=== PATIENT | female | born 1980 | race Caucasian/White ===

== ENCOUNTER 2024-12-14 13:35 | Emergency (ER) | payer OTHER, SELFPAY ==
--- OUTSIDE RECORDS SUMMARY | 2024-12-14 13:40 | XMS_ITS | Referral Summary ---
Author Organization [facility] Address [address] [place] [address] Care Team Providers Care Manager User Interface Name Role Phone Keron Ayon MD Unavailable Masoud Resendiz MD Unavailable [phone] Renetta Parks NP Primary Care Provider Kae Vaughan MD Unavailable [phone] Adriana Vazquez MD Unavailable Encounters Date Type Department Care Team Description 11/30/19 Results Follow-Up [facility] Primary Care at [place] [address] [facility] [address] [place] [address] Kia Gómez NP Surgical pathology 11/25/19 1:33 PM CDT Anesthesia Event [facility] [address] [place], [place] [id number] Jacobo Barajas MD 11/25/19 1:00 PM CDT - 11/25/19 1:30 PM CDT Surgery [facility] Lab [address] [place] [address] Gareth Whittaker MD ESOPHAGOGASTRODUODENOSCOPY BIOPSY 11/25/19 11:52 AM CDT - 11/25/19 4:01 PM CDT Hospital Encounter [facility] Lab [address] [place], [place] [id number] Gareth Whittaker MD Dysphagia, unspecified type Discharge Disposition: Discharge to home or self care 11/19/19 Orders Only [facility] Primary Care at [address] [place] [address] Renetta Parks NP Breast cancer screening by mammogram (Primary Dx) 11/17/19 Results Follow-Up [facility] Primary Care at [address] [place] [address] Renetta Parks NP Diagnostic Mammogram Right [place] 11/16/19 9:37 AM CDT - 11/16/19 11:59 PM CDT Hospital Encounter [facility] Imaging and Radiology [id number] [place] [id number] Abnormal mammogram Discharge Disposition: Discharge to home or self care 11/15/19 10:30 AM CDT Office Visit [facility] [address] [facility] 6th [place] [phone] Margarita Fuentes NP Small fiber neuropathy (Primary Dx) 11/05/19 Results Follow-Up [facility] Primary Care at [address] [place] [address] Renetta Parks NP Screening Mammogram Bilateral [place] 11/03/19 9:02 AM CDT - 11/03/19 11:59 PM CDT Hospital Encounter [facility] Imaging and Radiology [address] [place] [address] Screening mammogram, encount er for Discharge Disposition: Discharge to home or self care 10/04/19 Telephone [facility] Gastroenterology at [facility] [place] [address] [facility] [address] [place] [phone] Gareth Whittaker MD from Last 3 Months Allergies Active Allergy Reactions Criticality Noted Date Comments Adhesive Tape-Silicones Unknown 04/23/2017 DERMABOND Hydrocodone Rash,Nausea And Vomiting Medium 12/25/2016 Oxycodone Rash Reaction: Rash, Sulfa (Sulfonamide Antibiotics) Rash Reaction: Rash, Sulfasalazine Rash Medium 04/23/2017 Medications acetaminophen (TYLENOL) 500 mg tablet Take 1 tablet (500 mg total) by mouth every 6 (six) hours as needed for pain Active acidophilus-pecti n, citrus 100 million cell-10 mg capsule Take 30 billion CFU by mouth daily Active sz-kkr-wkelo-calc ium carb-K1 400 mcg-500 mg calcium-20 mcg tablet Take by mouth Active fluticasone propionate (FLONASE) 50 mcg/actuation nasal spray Administer 2 sprays into affected nostril(s) daily Active lubiprostone (AMITIZA) 8 mcg capsule Take 1 capsule (8 mcg total) by mouth 2 (two) times a day 180 capsule 2 01/28/20 24 Active gabapentin (NEURONTIN) 300 mg capsule TAKE 1 CAPSULE(300 MG) BY MOUTH TWICE DAILY 180 capsule 3 02/26/20 24 Active EPINEPHrine 0.3 mg/0.3 mL auto-injection syringe Inject 0.3 mL (0.3 mg total) into the muscle as instructed once 11/09/19 24 Active BD SafetyGlide Insulin Syringe 0.5 mL 30 gauge x 11/25 syringe 06/14/20 24 Active sertraline (ZOLOFT) 100 mg tabletIndications :Generalized anxiety disorder Take 1 tablet (100 mg total) by mouth daily 90 tablet 3 08/03/19 25 Active omeprazole (PriLOSEC) 20 mg capsuleIndication s:Gastroesophagea l reflux disease, unspecified whether esophagitis present TAKE 1 CAPSULE(20 MG) BY MOUTH DAILY 90 capsule 1 09/29/19 25 Active estradioL (ESTRACE) 1 mg tablet TAKE 1 TABLET(1 MG) BY MOUTH DAILY 30 tablet 11 10/05/19 25 Active levothyroxine (SYNTHROID) 100 mcg tabletIndications :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 TAKE 1 TABLET(100 MCG) BY MOUTH DAILY 90 tablet 3 11/03/19 25 Active oxyBUTYnin XL (DITROPAN-XL) 5 mg 24 hr tablet TAKE 1 TABLET(5 MG) BY MOUTH DAILY 90 tablet 3 11/22/19 25 Active pravastatin (PRAVACHOL) 10 mg tabletIndications :Mixed hyperlipidemia TAKE 1 TABLET(10 MG) BY MOUTH DAILY 90 tablet 3 12/03/19 25 Active oxyBUTYnin XL (DITROPAN-XL) 5 mg 24 hr tablet Take 1 tablet (5 mg total) by mouth daily 90 tablet 3 12/14/19 24 2024 Discontinued pravastatin (PRAVACHOL) 10 mg tabletIndications :Mixed hyperlipidemia TAKE 1 TABLET(10 MG) BY MOUTH DAILY 90 tablet 3 02/03/20 24 2024 Discontinued Active Problems Problem Noted Date Diagnosed Date Dysphagia 09/01/2024 Esophageal dysphagia 08/03/2024 Assessment & Plan (08/31/2024 11:45 AM DIRECTOR REVENUE): Schedule EGD with possible dilation Assessment & Plan (08/03/2024 9:59 AM DIRECTOR REVENUE): -New -Patient will likely need an EGD. She has an appointment scheduled on 08/31/24 to establish care with GI. Advised patient to discuss with GI at that time. -Start on omeprazole 20 mg daily for GERD Well woman exam 09/28/2023 Overview (09/28/2023): Lab: Pap:h/o abnl 2005 s/p colpo Labs with pcp, had HPV Kelly:scheduling this week. Colonoscopy:2022- to repeat in 2027 BMD: 2019. Told normal Assessment & Plan (11/17/2023 10:55 AM CDT): Due in September 2024 Assessment & Plan (09/28/2023 10:51 AM CDT): Complete exam done Menopausal symptoms 09/28/2023 Assessment & Plan (11/17/2023 10:57 AM CDT): She is happy with the estradiol Sleeping Occ hf still, but she is happy Will continue on. Assessment & Plan (09/28/2023 10:10 AM CDT): She was on estrogen patches, but broke out. Will start po estrogen and see if it affects her chol negatively If so will consider ring. Family history of breast cancer in male 09/28/19 Overview (10/15/2023): Mgf- he had three siblings, none with cancer He had two kids, none with cancer She qualifies for genetic testing. Will arrange. RTO 6 weeks for the results. The limitations and implications of the test reviewed. She voices understanding and would like to proceed. 10/15/2023-Kermit negative TC model is 9.6 and my risk is 9.1% Assessment & Plan (11/17/2023 10:56 AM CDT): Results reviewed with how they apply to her and the family. They were encouraged to be tested Kelly this year was negative. To continue with yearly mams and breast awareness. We discussed the meaning of her dense breast. Assessment & Plan (09/28/2023 10:52 AM CDT): She qualifies for genetic testing. Will arrange. RTO 6 weeks for the results. The limitations and implications of the test reviewed. She voices understanding and would like to proceed. Rectal bleeding 07/31/2022 Overview (07/31/2022): Added automatically from request for surgery [id number] Chronic bilateral low back pain without sciatica 07/17/2022 Assessment & Plan (07/17/2022 10:55 AM DIRECTOR REVENUE): -chronic, not at goal -ordered PT -recommend gentle stretching exercises Thyroid nodule 03/28/2021 Assessment & Plan (08/03/2024 7:54 AM DIRECTOR REVENUE): - chronic, stable -Discussed/ordered labs -continue on levothyroxine 100 mcg daily - repeat thyroid ultrasound as needed if noticing any new nodules Assessment & Plan (01/27/2024 7:56 AM CDT): - chronic, stable -continue on levothyroxine 100 mcg daily - repeat thyroid ultrasound as needed if noticing any new nodules Assessment & Plan (07/22/2023 1:13 PM DIRECTOR REVENUE): - chronic, Condition is stable -continue on levothyroxine 100 mcg daily - repeat thyroid ultrasound as needed if noticing any new nodules Assessment & Plan (04/13/2023 9:39 AM CDT): Detected on Ultrasound on 08/30/20 Left thyroid nodule 1.5 X 1.2 cm FNA biopsy showed abnormal cells, but Afirma was low suspicion for malignancy Thyroid Ultrasound on 04/25/21 Stable left lobe nodule Last Ultrasound on 03/24/22 No dominant nodules detected. Plan: We will monitor thyroid gland. Repeat thyroid ultrasound this year Assessment & Plan (07/17/2022 7:17 AM DIRECTOR REVENUE): HPI: Condition is stable A&P: Discussed/ordered labs, encouraged healthy, low carbohydrate lifestyle and at least 150min/week of exercise, continue on levothyroxine 100 mcg daily Continue seeing Dr. Grigsby endocrinology Assessment & Plan (04/16/2022 6:34 PM CDT): HPI: Condition is stable A&P: Discussed/ordered labs, encouraged healthy, low carbohydrate lifestyle and at least 150min/week of exercise, continue seeing Dr. Grigsby endo Continue on levothyroxine 100mcg daily Please take levothyroxine on an empty stomach. This means 1 hour before eating or 2 hours after eating. Food in the stomach will interfere with absorption of the levothyroxine. Calcium, antacids and iron supplements will also interfere with the absorption of levothyroxine. Please take these at a different time of the day. Assessment & Plan (04/07/2022 3:21 PM CDT): Detected on Ultrasound on 08/30/20 Left thyroid nodule 1.5 X 1.2 cm FNA biopsy showed abnormal cells, but Afirma was low suspicion for malignancy Thyroid Ultrasound on 04/25/21 Stable left lobe nodule Last Ultrasound on 03/24/22 No dominant nodules detected. Plan: We will monitor thyroid gland. Assessment & Plan (10/16/2021 6:54 AM CDT): HPI: Condition is stable A&P: US 08/30/2020 noted a left thyroid nodule. A biopsy showed abnormal cells, but Afirma was low suspicion for malignancy. Repeat thyroid US done on 04/25/2021 showed stable left lobe nodule, possible right nodule. When repeated before FNA biopsy, radiologist did not see a nodule. Continue seeing Dr. Seb lundberg who is monitoring thyroid and repeating ultrasound. Assessment & Plan (10/03/2021 3:22 PM CDT): Detected on Ultrasound on 08/30/20 Left thyroid nodule 1.5 X 1.2 cm FNA biopsy showed abnormal cells, but Afirma was low suspicion for malignancy Thyroid Ultrasound on 04/25/21 Stable left lobe nodule Possible right lobe nodule - but when repeated before FNA biopsy- radiologist did not see an actual nodule Plan: We will monitor thyroid and will repeat thyroid ultrasound before next visit. Assessment & Plan (03/28/2021 4:31 PM CDT): Detected on Ultrasound on 08/30/20 Left thyroid nodule 1.5 X 1.2 cm FNA biopsy showed abnormal cells, but Afirma was low suspicion for malignancy Plan: The diagnosis reviewed with patient We will monitor thyroid and will repeat thyroid ultrasound this month Small fiber neuropathy 03/22/2021 Assessment & Plan (08/03/2024 7:54 AM DIRECTOR REVENUE): - chronic, stable -Discussed/ordered labs -continue on gabapentin 300 mg twice daily -Continue seeing Dr. Marroquin Neurology Assessment & Plan (01/27/2024 7:56 AM CDT): - chronic, stable -Discussed/ordered labs -continue on gabapentin 300 mg twice daily -Continue seeing Dr. Marroquin Neurology Assessment & Plan (07/22/2023 1:13 PM DIRECTOR REVENUE): - chronic, Condition is stable -Discussed/ordered labs -continue on gabapentin 300 mg twice daily -Continue seeing Dr. Marroquin Neurology Assessment & Plan (07/17/2022 7:17 AM DIRECTOR REVENUE): HPI: Condition is stable A&P: Discussed/ordered labs, encouraged healthy, low carbohydrate lifestyle and at least 150min/week of exercise, continue on gabapentin 300 mg twice daily Continue seeing Dr. Marroquin Neurology Assessment & Plan (04/16/2022 6:35 PM CDT): HPI: Condition is stable A&P: Discussed/ordered labs, encouraged healthy, low carbohydrate lifestyle and at least 150min/week of exercise, continue on gabapentin 300mg twice daily, continue seeing Dr. Marroquin neuro Assessment & Plan (10/16/2021 6:55 AM CDT): HPI: Condition is stable A&P: Discussed/ordered labs, encouraged healthy, low carbohydrate lifestyle and at least 150min/week of exercise, continue on gabapentin 300mg twice daily, continue seeing Dr. Marroquin neuro Assessment & Plan (03/22/2021 1:52 PM CDT): HPI: Condition is stable A&P: Discussed/ordered labs, encouraged healthy, low carbohydrate lifestyle and at least 150min/week of exercise, continue on gabapentin 300mg once daily, seeing Dr. Marroquin neuro LALI (obstructive sleep apnea) 08/23/2020 Assessment & Plan (08/03/2024 7:54 AM DIRECTOR REVENUE): -chronic, stable Pt states using cpap for 7 hours/night 7 nights/wk Pt states less daytime somnolence, feels better when using it. Would recommend the continued use of cpap Continue seeing Dr. Vazquez sleep Medicine Assessment & Plan (01/27/2024 7:56 AM CDT): -chronic, stable Pt states using cpap for 7 hours/night 7 nights/wk Pt states less daytime somnolence, feels better when using it. Would recommend the continued use of cpap Continue seeing Dr. Vazquez sleep Medicine Assessment & Plan (07/22/2023 1:12 PM DIRECTOR REVENUE): -chronic, stable Pt states using cpap for 7 hours/night 7 nights/wk Pt states less daytime somnolence, feels better when using it. Would recommend the continued use of cpap Continue seeing Dr. Vazquez sleep Medicine Assessment & Plan (04/16/2022 6:37 PM CDT): Pt states using cpap for 6-8 hours/night most nights/wk Pt states less daytime somnolence, feels better when using it. Would recommend the continued use of cpap Continue f/u with Dr. Vazquez sleep med Assessment & Plan (10/16/2021 6:56 AM CDT): Pt states using cpap for 6-8 hours/night most nights/wk Pt states less daytime somnolence, feels better when using it. Would recommend the continued use of cpap Continue f/u with Dr. Vazquez sleep med Assessment & Plan (03/22/2021 1:46 PM CDT): Pt states using cpap for 6-8 hours/night most nights/wk Pt states less daytime somnolence, feels better when using it. Would recommend the continued use of cpap Continue f/u with Dr. Vazquez sleep med Assessment & Plan (09/14/2020 1:32 PM DIRECTOR REVENUE): Just got fitted today for her cpap and will be using it today. Her fatigue is getting worse and is hoping this will help. Dr. Vazquez (sleep med) Overactive bladder 04/06/2020 Assessment & Plan (04/17/2022 8:26 AM CDT): HPI: Condition is stable A&P: Discussed/ordered labs, encouraged healthy, low carbohydrate lifestyle and at least 150min/week of exercise, no longer seeing Dr. Nieto urology, now seeing Dr. Coley urology continue doing Kegel exercises and low back exercises, vesicare 5mg daily Pt did pelvic floor physical therapy, getting ready to start that again Assessment & Plan (10/16/2021 8:08 AM CDT): HPI: Condition is stable A&P: Discussed/ordered labs, encouraged healthy, low carbohydrate lifestyle and at least 150min/week of exercise, continue seeing Dr. Nieto urology, continue doing Kegel exercises and low back exercises, oxybutynin 5mg daily, still having breakthrough. Pt is doing pelvic floor PT. Assessment & Plan (03/22/2021 1:49 PM CDT): HPI: Condition is stable A&P: Discussed/ordered labs, encouraged healthy, low carbohydrate lifestyle and at least 150min/week of exercise, continue seeing Dr. Nieto, doing Kegel exercises and low back exercises, oxybutynin 5 mg daily, still having breakthrough. Doing pelvic floor PT at home also Assessment & Plan (09/14/2020 1:37 PM DIRECTOR REVENUE): HPI: Condition is stable A&P: Discussed/ordered labs, encouraged healthy, low carbohydrate lifestyle and at least 150min/week of exercise, continue seeing Dr. Nieto. Saw him yesterday. They did a scope on her, patient is doing Kegel exercises and low back exercises in taking oxybutynin 5 mg daily. She is going to start pelvic floor exercises. She still has some days when she sneezes and jumping that she has leakage or when she is busy and does not get to go to the bathroom as frequently she may have a little leakage. Assessment & Plan (04/06/2020 8:25 AM CDT): HPI: Condition is stable A&P: Discussed/ordered labs, encouraged healthy, low carbohydrate lifestyle and at least 150min/week of exercise, continue on She is seeing urology-Dr. Pond Did scope, has pt doing kegel exercises, low back exercises and taking oxybutynin 5mg daily. She still has some days when she sneezing that she has leakage or if she is busy and doesn't go to the bathroom as frequently she may have some leakage Raynaud's disease without gangrene 04/06/2020 Assessment & Plan (08/03/2024 7:55 AM DIRECTOR REVENUE): -chronic, stable -continue to wear gloves and warm socks and winter, use thermally cups to avoid rapid temperature changes to hands Assessment & Plan (07/22/2023 1:12 PM DIRECTOR REVENUE): -chronic, Condition is stable -continue to wear gloves and warm socks and winter, use thermally cups to avoid rapid temperature changes to hands Assessment & Plan (07/17/2022 7:18 AM DIRECTOR REVENUE): HPI: Condition is stable A&P: continue to wear gloves and warm socks and winter, use thermally cups to avoid rapid temperature changes to hands Assessment & Plan (04/16/2022 6:37 PM CDT): continue to wear gloves and warm socks in the winter, recommend using thermal lined cups to avoid rapid temperature changes to hands Assessment & Plan (10/16/2021 6:57 AM CDT): HPI: Condition is stable A&P: Discussed/ordered labs, encouraged healthy, low carbohydrate lifestyle and at least 150min/week of exercise, continue to wear gloves and warm socks in the winter, recommend using thermal lined cups to avoid rapid temperature changes to hands Assessment & Plan (03/22/2021 1:27 PM CDT): HPI: Condition is stable A&P: Discussed/ordered labs, encouraged healthy, low carbohydrate lifestyle and at least 150min/week of exercise, continue to wear gloves and warm socks in the winter, recommend using thermal lined cups to avoid rapid temperature changes to hands Assessment & Plan (09/14/2020 1:34 PM DIRECTOR REVENUE): HPI: Condition is stable , she has a lot of callouses and dry skin on her feet. Sometimes her feet peel until they are bleeding. A&P: Discussed/ordered labs, encouraged healthy, low carbohydrate lifestyle and at least 150min/week of exercise, continue on make sure your wearing warm socks and gloves during the winter, should be using a thermal lying cup to be drinking out of so you do not have large temperature changes on her hands Referral to podiatry made Assessment & Plan (04/06/2020 9:45 AM CDT): HPI: Condition is stable A&P: Discussed/ordered labs, encouraged healthy, low carbohydrate lifestyle and at least 150min/week of exercise, discussed with patient to please make sure she is wearing warm socks and gloves during the winter, she should be using a thermal lined cup to be drinking out of so she does not have large temperature changes on her hands Class 2 severe obesity due t o excess calories with serious comorbidity and body mass index (BMI) of 37.0 to 37.9 in adult 04/06/2020 Assessment & Plan (08/03/2024 7:55 AM DIRECTOR REVENUE): -chronic, not at/near goal goal BMI <30 Healthy, high-protein, lower carbohydrate, lower fat lifestyle and exercise for 150min/week recommended Recommend tracking everything you put in your mouth on an debo like [employer] Hand Measurements: A fist or cupped hand = 1 cup 1 cup = 1 -2 servings of fruit juice 1 oz. of cold cereal 2 oz. of cooked cereal, rice or pasta 8 oz. of milk or yogurt A thumb = 1 oz. of cheese Consuming low-fat cheese helps you meet the required servings from the milk, yogurt and cheese group. 1 oz. of low-fat cheese counts as 8 oz. of milk or yogurt. Handful = 1-2 oz. of snack food Thumb tip = 1 teaspoon Keep high-fat foods, such as peanut butter and mayonnaise, at a minimum. One teaspoon is equal to the end of your thumb, from the knuckle up. Three teaspoons equals 1 tablespoon. Palm = 3 oz. of meat Choose lean poultry, fish, shellfish and beef. One palm size portion equals 3 oz. for an adult and 1 -2 oz. for a child under 5. 1 tennis ball or a fist= 1/2 cup of fruit and vegetables Healthy diets include a variety of colorful fruits and vegetables every day. The secret to serving size is in your hand. Snacking can add up. Because hand sizes vary, compare your fist size to an actual measuring cup. Assessment & Plan (01/27/2024 7:57 AM CDT): -chronic, not at/near goal goal BMI <30 Healthy, high-protein, lower carbohydrate, lower fat lifestyle and exercise for 150min/week recommended Recommend tracking everything you put in your mouth on an debo like [employer] Hand Measurements: A fist or cupped hand = 1 cup 1 cup = 1 -2 servings of fruit juice 1 oz. of cold cereal 2 oz. of cooked cereal, rice or pasta 8 oz. of milk or yogurt A thumb = 1 oz. of cheese Consuming low-fat cheese helps you meet the required servings from the milk, yogurt and cheese group. 1 oz. of low-fat cheese counts as 8 oz. of milk or yogurt. Handful = 1-2 oz. of snack food Thumb tip = 1 teaspoon Keep high-fat foods, such as peanut butter and mayonnaise, at a minimum. One teaspoon is equal to the end of your thumb, from the knuckle up. Three teaspoons equals 1 tablespoon. Palm = 3 oz. of meat Choose lean poultry, fish, shellfish and beef. One palm size portion equals 3 oz. for an adult and 1 -2 oz. for a child under 5. 1 tennis ball or a fist= 1/2 cup of fruit and vegetables Healthy diets include a variety of colorful fruits and vegetables every day. The secret to serving size is in your hand. Snacking can add up. Because hand sizes vary, compare your fist size to an actual measuring cup. Assessment & Plan (07/22/2023 1:10 PM DIRECTOR REVENUE): HPI: Condition is not at/near goal goal BMI <30 A&P: Healthy, high-protein, lower carbohydrate, lower fat lifestyle and exercise for 150min/week recommended Recommend tracking everything you put in your mouth on an debo like [employer] Hand Measurements: A fist or cupped hand = 1 cup 1 cup = 1 -2 servings of fruit juice 1 oz. of cold cereal 2 oz. of cooked cereal, rice or pasta 8 oz. of milk or yogurt A thumb = 1 oz. of cheese Consuming low-fat cheese helps you meet the required servings from the milk, yogurt and cheese group. 1 oz. of low-fat cheese counts as 8 oz. of milk or yogurt. Handful = 1-2 oz. of snack food Thumb tip = 1 teaspoon Keep high-fat foods, such as peanut butter and mayonnaise, at a minimum. One teaspoon is equal to the end of your thumb, from the knuckle up. Three teaspoons equals 1 tablespoon. Palm = 3 oz. of meat Choose lean poultry, fish, shellfish and beef. One palm size portion equals 3 oz. for an adult and 1 -2 oz. for a child under 5. 1 tennis ball or a fist= 1/2 cup of fruit and vegetables Healthy diets include a variety of colorful fruits and vegetables every day. The secret to serving size is in your hand. Snacking can add up. Because hand sizes vary, compare your fist size to an actual measuring cup. Assessment & Plan (02/26/2023 7:01 AM CDT): HPI: Condition is not at/near goal goal BMI <30 A&P: Healthy, high-protein, lower carbohydrate, lower fat lifestyle and exercise for 150min/week recommended Recommend tracking everything you put in your mouth on an debo like [employer] Hand Measurements: A fist or cupped hand = 1 cup 1 cup = 1 -2 servings of fruit juice 1 oz. of cold cereal 2 oz. of cooked cereal, rice or pasta 8 oz. of milk or yogurt A thumb = 1 oz. of cheese Consuming low-fat cheese helps you meet the required servings from the milk, yogurt and cheese group. 1 oz. of low-fat cheese counts as 8 oz. of milk or yogurt. Handful = 1-2 oz. of snack food Thumb tip = 1 teaspoon Keep high-fat foods, such as peanut butter and mayonnaise, at a minimum. One teaspoon is equal to the end of your thumb, from the knuckle up. Three teaspoons equals 1 tablespoon. Palm = 3 oz. of meat Choose lean poultry, fish, shellfish and beef. One palm size portion equals 3 oz. for an adult and 1 -2 oz. for a child under 5. 1 tennis ball or a fist= 1/2 cup of fruit and vegetables Healthy diets include a variety of colorful fruits and vegetables every day. The secret to serving size is in your hand. Snacking can add up. Because hand sizes vary, compare your fist size to an actual measuring cup. Assessment & Plan (01/15/2023 7:17 AM CDT): HPI: Condition is not at/near goal goal BMI <30 A&P: Healthy, high-protein, lower carbohydrate, lower fat lifestyle and exercise for 150min/week recommended Recommend tracking everything you put in your mouth on an debo like myfitnesspal Hand Measurements: A fist or cupped hand = 1 cup 1 cup = 1 -2 servings of fruit juice 1 oz. of cold cereal 2 oz. of cooked cereal, rice or pasta 8 oz. of milk or yogurt A thumb = 1 oz. of cheese Consuming low-fat cheese helps you meet the required servings from the milk, yogurt and cheese group. 1 oz. of low-fat cheese counts as 8 oz. of milk or yogurt. Handful = 1-2 oz. of snack food Thumb tip = 1 teaspoon Keep high-fat foods, such as peanut butter and mayonnaise, at a minimum. One teaspoon is equal to the end of your thumb, from the knuckle up. Three teaspoons equals 1 tablespoon. Palm = 3 oz. of meat Choose lean poultry, fish, shellfish and beef. One palm size portion equals 3 oz. for an adult and 1 -2 oz. for a child under 5. 1 tennis ball or a fist= 1/2 cup of fruit and vegetables Healthy diets include a variety of colorful fruits and vegetables every day. The secret to serving size is in your hand. Snacking can add up. Because hand sizes vary, compare your fist size to an actual measuring cup. Assessment & Plan (11/13/2022 7:05 AM CDT): HPI: Condition is not at/near goal goal BMI <30 A&P: Healthy, high-protein, lower carbohydrate, lower fat lifestyle and exercise for 150min/week recommended Recommend tracking everything you put in your mouth on an debo like CellSpin[employer] Hand Measurements: A fist or cupped hand = 1 cup 1 cup = 1 -2 servings of fruit juice 1 oz. of cold cereal 2 oz. of cooked cereal, rice or pasta 8 oz. of milk or yogurt A thumb = 1 oz. of cheese Consuming low-fat cheese helps you meet the required servings from the milk, yogurt and cheese group. 1 oz. of low-fat cheese counts as 8 oz. of milk or yogurt. Handful = 1-2 oz. of snack food Thumb tip = 1 teaspoon Keep high-fat foods, such as peanut butter and mayonnaise, at a minimum. One teaspoon is equal to the end of your thumb, from the knuckle up. Three teaspoons equals 1 tablespoon. Palm = 3 oz. of meat Choose lean poultry, fish, shellfish and beef. One palm size portion equals 3 oz. for an adult and 1 -2 oz. for a child under 5. 1 tennis ball or a fist= 1/2 cup of fruit and vegetables Healthy diets include a variety of colorful fruits and vegetables every day. The secret to serving size is in your hand. Snacking can add up. Because hand sizes vary, compare your fist size to an actual measuring cup. Assessment & Plan (09/18/2022 7:07 AM DIRECTOR REVENUE): HPI: Condition is not at/near goal goal BMI <30 A&P: Healthy, high-protein, lower carbohydrate, lower fat lifestyle and exercise for 150min/week recommended Recommend tracking everything you put in your mouth on an debo like [employer] Hand Measurements: A fist or cupped hand = 1 cup 1 cup = 1 -2 servings of fruit juice 1 oz. of cold cereal 2 oz. of cooked cereal, rice or pasta 8 oz. of milk or yogurt A thumb = 1 oz. of cheese Consuming low-fat cheese helps you meet the required servings from the milk, yogurt and cheese group. 1 oz. of low-fat cheese counts as 8 oz. of milk or yogurt. Handful = 1-2 oz. of snack food Thumb tip = 1 teaspoon Keep high-fat foods, such as peanut butter and mayonnaise, at a minimum. One teaspoon is equal to the end of your thumb, from the knuckle up. Three teaspoons equals 1 tablespoon. Palm = 3 oz. of meat Choose lean poultry, fish, shellfish and beef. One palm size portion equals 3 oz. for an adult and 1 -2 oz. for a child under 5. 1 tennis ball or a fist= 1/2 cup of fruit and vegetables Healthy diets include a variety of colorful fruits and vegetables every day. The secret to serving size is in your hand. Snacking can add up. Because hand sizes vary, compare your fist size to an actual measuring cup. Assessment & Plan (07/17/2022 7:20 AM DIRECTOR REVENUE): HPI: Condition is not at/near goal goal BMI <30 A&P: Healthy, high-protein, lower carbohydrate, lower fat lifestyle and exercise for 150min/week recommended Recommend tracking everything you put in your mouth on an debo like [employer] Hand Measurements: A fist or cupped hand = 1 cup 1 cup = 1 -2 servings of fruit juice 1 oz. of cold cereal 2 oz. of cooked cereal, rice or pasta 8 oz. of milk or yogurt A thumb = 1 oz. of cheese Consuming low-fat cheese helps you meet the required servings from the milk, yogurt and cheese group. 1 oz. of low-fat cheese counts as 8 oz. of milk or yogurt. Handful = 1-2 oz. of snack food Thumb tip = 1 teaspoon Keep high-fat foods, such as peanut butter and mayonnaise, at a minimum. One teaspoon is equal to the end of your thumb, from the knuckle up. Three teaspoons equals 1 tablespoon. Palm = 3 oz. of meat Choose lean poultry, fish, shellfish and beef. One palm size portion equals 3 oz. for an adult and 1 -2 oz. for a child under 5. 1 tennis ball or a fist= 1/2 cup of fruit and vegetables Healthy diets include a variety of colorful fruits and vegetables every day. The secret to serving size is in your hand. Snacking can add up. Because hand sizes vary, compare your fist size to an actual measuring cup. Assessment & Plan (04/16/2022 6:37 PM CDT): HPI: Condition is not at/near goal goal BMI <30 A&P: Healthy, high-protein, lower carbohydrate, lower fat lifestyle and exercise for 150min/week recommended Recommend tracking everything you put in your mouth on an debo like [employer] Cloud Lower carb substitutions: [employer] carries a zero net carb bread If you are looking for whole potatoes, like to use in soup or new potato shape/flavor, radishes are a great replacement If you are looking for mashed potatoes, riced cauliflower in the frozen bag section are a great replacement For pasta, try using zucchini noodles, lay them out on a cookie sheet and pat dry with a tea towel to try to remove as much moisture as possible. Heat your pasta sauce on the stove and put the noodles in for 30-45 seconds. If you leave them in much longer they will become mushy Nocatee and/or coconut flour instead of regular flour For pizza dough, try fathead pizza dough recipe online. To get a crispy crust, bake on one side for 8-12 min, then flip over and bake on the other side for 8-12 min, then put toppings on and bake until the cheese on top of pizza melts chaffles recipe online For ice cream, try the brand Enlightened To replace coffee creamer and make it low carb, use heavy creamer with sugar free Torani sweetener For chips, try Whisps or pork rinds For yogurt, try Two Good martiniquais yogurt Use Pinterest for recipe ideas. Type in low carb... Hand Measurements: A fist or cupped hand = 1 cup 1 cup = 1 -2 servings of fruit juice 1 oz. of cold cereal 2 oz. of cooked cereal, rice or pasta 8 oz. of milk or yogurt A thumb = 1 oz. of cheese Consuming low-fat cheese helps you meet the required servings from the milk, yogurt and cheese group. 1 oz. of low-fat cheese counts as 8 oz. of milk or yogurt. Handful = 1-2 oz. of snack food Thumb tip = 1 teaspoon Keep high-fat foods, such as peanut butter and mayonnaise, at a minimum. One teaspoon is equal to the end of your thumb, from the knuckle up. Three teaspoons equals 1 tablespoon. Palm = 3 oz. of meat Choose lean poultry, fish, shellfish and beef. One palm size portion equals 3 oz. for an adult and 1 -2 oz. for a child under 5. 1 tennis ball or a fist= 1/2 cup of fruit and vegetables Healthy diets include a variety of colorful fruits and vegetables every day. The secret to serving size is in your hand. Snacking can add up. Remember, 1 handful equals 1 oz. of nuts and small candies. For chips and pretzels, 2 handfuls equals 1 oz. Because hand sizes vary, compare your fist size to an actual measuring cup. Assessment & Plan (10/16/2021 8:07 AM CDT): HPI: Condition is improving, but not at goal goal BMI <30 A&P: Healthy, high-protein, lower carbohydrate, lower fat lifestyle and exercise for 150min/week recommended Substitutions: Recommend tracking everything you put in your mouth on an debo like [employer] Cloud or [employer] carries a zero net carb bread If you are looking for whole potatoes, like to use in soup or new potato shape/flavor, radishes are a great replacement If you are looking for mashed potatoes, riced cauliflower in the frozen bag section are a great replacement For pasta, try using zucchini noodles, lay them out on a cookie sheet and pat dry with a tea towel to try to remove as much moisture as possible. Heat your pasta sauce on the stove and put the noodles in for 30-45 seconds. If you leave them in much longer they will become mushy Nocatee and/or coconut flour instead of regular flour For pizza dough, try fathead pizza dough recipe online. To get a crispy crust, bake on one side for 8-12 min, then flip over and bake on the other side for 8-12 min, then put toppings on and bake until the cheese on top of pizza melts chaffles recipe online For ice cream, try the brand Enlightened To replace coffee creamer and make it low carb, use heavy creamer with sugar free Torani sweetener For chips, try Whisps or pork rinds For yogurt, try Two Good martiniquais yogurt Use [employer] for recipe ideas. Type in low carb... Assessment & Plan (03/22/2021 1:47 PM CDT): HPI: Condition is not at/near goal goal BMI <30 A&P: Healthy, high-protein, lower carbohydrate, lower fat lifestyle and exercise for 150min/week recommended Pt has interest in seeing Carlita Russell NP for wt loss evaluation Substitutions: Recommend tracking everything you put in your mouth on an debo like [employer] Cloud or [employer] carries a zero net carb bread If you are looking for whole potatoes, like to use in soup or new potato shape/flavor, radishes are a great replacement If you are looking for mashed potatoes, riced cauliflower in the frozen bag section are a great replacement For pasta, try using zucchini noodles, lay them out on a cookie sheet and pat dry with a tea towel to try to remove as much moisture as possible. Heat your pasta sauce on the stove and put the noodles in for 30-45 seconds. If you leave them in much longer they will become mushy Nocatee and/or coconut flour instead of regular flour For pizza dough, try fathead pizza dough recipe online. To get a crispy crust, bake on one side for 8-12 min, then flip over and bake on the other side for 8-12 min, then put toppings on and bake until the cheese on top of pizza melts chaffles recipe online For ice cream, try the brand Enlightened To replace coffee creamer and make it low carb, use heavy creamer with sugar free Torani sweetener For chips, try Whisps or pork rinds For yogurt, try Two Good martiniquais yogurt Use Pinterest for recipe ideas. Type in low carb... Assessment & Plan (09/14/2020 12:58 PM DIRECTOR REVENUE): HPI: Condition is stable A&P: Healthy, low carbohydrate lifestyle and exercise for 150min/week recommended Substitutions: Recommend tracking everything you put in your mouth on an debo like [employer] Cloud [employer] carries a zero net carb bread If you are looking for whole potatoes, like to use in soup or new potato shape/flavor, radishes are a great replacement If you are looking for mashed potatoes, riced cauliflower in the frozen bag section are a great replacement For pasta, try using zucchini noodles, lay them out on a cookie sheet and pat dry with a tea towel to try to remove as much moisture as possible. Heat your pasta sauce on the stove and put the noodles in for 30-45 seconds. If you leave them in much longer they will become mushy Nocatee and/or coconut flour instead of regular flour For pizza dough, try fathead pizza dough recipe online. To get a crispy crust, bake on one side for 8-12 min, then flip over and bake on the other side for 8-12 min, then put toppings on and bake until the cheese on top of pizza melts chaffles recipe online For ice cream, try the brand Enlightened To replace coffee creamer and make it low carb, use heavy creamer with sugar free Torani sweetener For chips, try Whisps or pork rinds For yogurt, try Two Good martiniquais yogurt Use Pinterest for recipe ideas. Type in low carb... Assessment & Plan (04/06/2020 9:52 AM CDT): HPI: Condition is worsening A&P: Healthy, low carbohydrate lifestyle and exercise for 150min/week recommended Substitutions: Aldi carries a zero net carb bread If you are looking for whole potatoes, like to use in soup or new potato shape/flavor, radishes are a great replacement If you are looking for mashed potatoes, riced cauliflower in the frozen bag section are a great replacement For pasta, try using zucchini noodles, lay them out on a cookie sheet and pat dry with a tea towel to try to remove as much moisture as possible. Heat your pasta sauce on the stove and put the noodles in for 30-45 seconds. If you leave them in much longer they will become mushy Nocatee and/or coconut flour instead of regular flour For pizza dough, try fathead pizza dough recipe online. To get a crispy crust, bake on one side for 8-12 min, then flip over and bake on the other side for 8-12 min, then put toppings on and bake until the cheese on top of pizza melts chaffles recipe online For ice cream, try the brand Enlightened Use Pinterest for recipe ideas. Type in low carb... Irritable bowel syndrome wit h both constipation and diarrhea 09/22/2019 Assessment & Plan (08/31/2024 11:45 AM DIRECTOR REVENUE): Continue Amitiza Assessment & Plan (08/03/2024 9:56 AM DIRECTOR REVENUE): -chronic, stable -Discussed/ordered labs -Keep scheduled appointment to establish care with GI on 08/31/24 Assessment & Plan (01/30/2024 11:27 AM CDT): -chronic, stable -Discussed/ordered labs -patient will need a referral to GI since Dr. Ayon is leaving [facility] soon. -referral placed to GI Assessment & Plan (04/16/2022 6:42 PM CDT): HPI: Condition is stable A&P: Discussed/ordered labs, encouraged healthy, low carbohydrate lifestyle and at least 150min/week of exercise, continue on amitriptyline 50mg nightly, continue to see Dr. Ayon GI Continue to take daily probiotics Assessment & Plan (10/16/2021 8:11 AM CDT): HPI: Condition is stable starting to get better. Pt is getting ready to see a GI specialist that specializes with endometriosis also. A&P: Discussed/ordered labs, encouraged healthy, low carbohydrate lifestyle and at least 150min/week of exercise, continue on amitriptyline 50 mg nightly, continue seeing Dr. Ayon (GI). Please start taking probiotic 20-50billion CFU daily buttermaker continuous churn. This will help maintain the good bacteria that is in your gut. Assessment & Plan (03/22/2021 1:29 PM CDT): HPI: Condition is stable A&P: Discussed/ordered labs, encouraged healthy, low carbohydrate lifestyle and at least 150min/week of exercise, continue on amitriptyline 25 mg at bedtime, no longer taking bentyl. Continue seeing Dr. Ayon (GI) Please start taking probiotic 20-50billion CFU daily buttermaker continuous churn. This will help maintain the good bacteria that is in your gut. Please note that the refrigerated probiotics are going to be superior to the shelf stable ones. However, once the refrigerated ones are no longer cold, they are old and should be considered not effective. For this reason, I recommend purchasing a bottle of shelf stable ones also if you are going to be out of town or do not have a stable refrigeration system in place for the probiotic. Assessment & Plan (09/14/2020 1:40 PM DIRECTOR REVENUE): HPI: Condition is stable A&P: Discussed/ordered labs, encouraged healthy, low carbohydrate lifestyle and at least 150min/week of exercise, continue on Bentyl 20 mg 4 times daily in amitriptyline 25 mg at bedtime. Continue seeing Dr. Gabo WATERS Please start taking probiotic 20-50billion CFU daily buttermaker continuous churn. This will help maintain the good bacteria that is in your gut. Please note that the refrigerated probiotics are going to be superior to the shelf stable ones. However, once the refrigerated ones are no longer cold, they are old and should be considered not effective. For this reason, I recommend purchasing a bottle of shelf stable ones also if you are going to be out of town or do not have a stable refrigeration system in place for the probiotic. Assessment & Plan (04/06/2020 7:42 AM CDT): HPI: Condition is stable A&P: Discussed/ordered labs, encouraged healthy, low carbohydrate lifestyle and at least 150min/week of exercise, continue on Bentyl 20 mg 4 times daily and amitriptyline 25 mg at bedtime Patient sees Dr. Gabo WATERS Mixed hyperlipidemia 04/28/2019 Assessment & Plan (08/03/2024 7:54 AM DIRECTOR REVENUE): -chronic, stable -Discussed/ordered labs -continue on pravastatin 10 mg nightly Assessment & Plan (01/27/2024 7:56 AM CDT): -chronic, stable -Discussed/ordered labs -continue on pravastatin 10 mg nightly Assessment & Plan (07/22/2023 1:11 PM DIRECTOR REVENUE): -chronic, unknown, no data to review at this time to make an evaluation -Discussed/ordered labs -continue on pravastatin 10 mg nightly Assessment & Plan (04/16/2022 6:44 PM CDT): HPI: Condition is stable A&P: Discussed/ordered labs, encouraged healthy, low carbohydrate lifestyle and at least 150min/week of exercise, continue on pravastatin 10mg daily, push water intake Assessment & Plan (10/16/2021 7:02 AM CDT): HPI: Condition is stable A&P: Discussed/ordered labs, encouraged healthy, low carbohydrate lifestyle and at least 150min/week of exercise, continue on pravastatin 10mg daily, push water intake Assessment & Plan (03/22/2021 1:30 PM CDT): HPI: Condition is stable A&P: Discussed/ordered labs, encouraged healthy, low carbohydrate lifestyle and at least 150min/week of exercise, continue on pravastatin 10 mg daily, push water intake Assessment & Plan (09/14/2020 1:41 PM DIRECTOR REVENUE): HPI: Condition is stable A&P: Discussed/ordered labs, encouraged healthy, low carbohydrate lifestyle and at least 150min/week of exercise, continue on pravastatin 10 mg daily, push water Assessment & Plan (04/06/2020 7:39 AM CDT): HPI: Condition is stable A&P: Discussed/ordered labs, encouraged healthy, low carbohydrate lifestyle and at least 150min/week of exercise, continue on pravastatin 10 mg daily Assessment & Plan (04/28/2019 11:34 AM CDT): Discussed labs, Condition is new, encouraged healthy, low carbohydrate diet and at least 150min/week of exercise, start on pravastatin 10mg daily. It is best to take it at bedtime if possible. Drink lots of water to prevent muscle pains Arthralgia 04/28/2019 Assessment & Plan (04/16/2022 6:44 PM CDT): HPI: Condition is stable A&P: Discussed/ordered labs, encouraged healthy, low carbohydrate lifestyle and at least 150min/week of exercise, patient may trial on Vital Proteins Collagen Peptides two capfuls a day to help with joints May continue to use tylenol as needed Assessment & Plan (10/16/2021 7:01 AM CDT): HPI: Condition is stable A&P: Discussed/ordered labs, encouraged healthy, low carbohydrate lifestyle and at least 150min/week of exercise, patient may trial on Vital Proteins Collagen Peptides two capfuls a day to help with joints Assessment & Plan (03/22/2021 1:30 PM CDT): HPI: Condition is stable A&P: Discussed/ordered labs, encouraged healthy, low carbohydrate lifestyle and at least 150min/week of exercise, patient may trial on Vital Proteins Collagen Peptides two capfuls a day to help with joints Assessment & Plan (09/14/2020 1:41 PM DIRECTOR REVENUE): HPI: Condition is stable A&P: Discussed/ordered labs, encouraged healthy, low carbohydrate lifestyle and at least 150min/week of exercise, endocrinology recommended patient see rheumatology and now she is scheduled to see Dr. Michaud (gauge controller) patient may trial on Vital Proteins Collagen Peptides one capful a day to help with joints Assessment & Plan (07/27/2020 4:13 PM DIRECTOR REVENUE): Patient with chronic symptoms and has seen Client Account Assistant and did not get treatment Her symptoms are not caused by thyroid or Lucio's - explained to patient that her thyroid disease is not the cause of joint problems. - I suggested getting rheumatological second opinion Assessment & Plan (04/06/2020 9:47 AM CDT): HPI: Condition is stable A&P: Discussed/ordered labs, encouraged healthy, low carbohydrate lifestyle and at least 150min/week of exercise, at last office visit we gave referral to rheumatology She is seeing Dr. Kitchen Assessment & Plan (04/28/2019 11:19 AM CDT): Condition is worsening She is having bilateral knee pain, pain in back, hip pain/goes numb. We will do rheumatoid panel work up and refer to rheumatology Vitamin D deficiency 03/25/2019 Assessment & Plan (08/03/2024 9:56 AM DIRECTOR REVENUE): -chronic, stable -Discussed/ordered labs -Patient is not currently taking a supplement for this Assessment & Plan (01/27/2024 7:56 AM CDT): -chronic, stable -Discussed/ordered labs -continue on vitamin D3 5000 units daily Assessment & Plan (07/22/2023 1:14 PM DIRECTOR REVENUE): -chronic, Condition is stable -Discussed/ordered labs -continue on vitamin D3 5000 units daily Assessment & Plan (07/17/2022 7:16 AM DIRECTOR REVENUE): HPI: Condition is stable A&P: Discussed/ordered labs, encouraged healthy, low carbohydrate lifestyle and at least 150min/week of exercise, continue on vitamin D3 5000 units daily Assessment & Plan (04/16/2022 6:44 PM CDT): HPI: Condition is stable A&P: Discussed/ordered labs, encouraged healthy, low carbohydrate lifestyle and at least 150min/week of exercise, continue on vit d3 5000 units daily Assessment & Plan (10/16/2021 7:02 AM CDT): HPI: Condition is stable A&P: Discussed/ordered labs, encouraged healthy, low carbohydrate lifestyle and at least 150min/week of exercise, continue on vit d3 5000 units daily Assessment & Plan (03/22/2021 1:30 PM CDT): HPI: Condition is stable A&P: Discussed/ordered labs, encouraged healthy, low carbohydrate lifestyle and at least 150min/week of exercise, continue on vitamin D3 5000 units daily Assessment & Plan (09/14/2020 1:02 PM DIRECTOR REVENUE): HPI: Condition is stable A&P: Discussed/ordered labs, encouraged healthy, low carbohydrate lifestyle and at least 150min/week of exercise, continue on vitamin D3 5000 units daily Assessment & Plan (04/06/2020 7:40 AM CDT): HPI: Condition is stable A&P: Discussed/ordered labs, encouraged healthy, low carbohydrate lifestyle and at least 150min/week of exercise, continue on vitamin D3 5000 units daily Assessment & Plan (04/28/2019 11:32 AM CDT): Discussed labs, Condition is worsening, encouraged healthy, low carbohydrate diet and at least 150min/week of exercise, Start on max d3 1 tablet daily x 1 mo Then contact office and we will switch to 1 tablet weekly Recheck vit d level in 3 mo Some insurances cover and some don't. If they do not cover, it costs about $30 for the first month, then about $5 each month after that. This is a buttermaker continuous churn medication unless you [place] Please have pharmacy fill the script given, please do not purchase the over the counter vit d. I have had success with this brand of vit d as it is a regulated dose. Over the counter products are not as regulated and can give inconsistent results. Assessment & Plan (03/25/2019 10:59 AM CDT): Will repeat vit d level Abdominal pain 11/16/2018 Assessment & Plan (08/31/2024 11:45 AM DIRECTOR REVENUE): Tender point near belly button, long-standing issue. History of IBS with alternating constipation and diarrhea. Currently on Lubiprostone. -Continue Lubiprostone. -Order pancreatic enzyme test to evaluate for potential pancreatitis. Assessment & Plan (01/15/2023 12:07 PM CDT): -chronic, not at goal -patient completed pelvic floor therapy in 2020, back physical therapy in 2022, 2 colonoscopies in the last 4 years, an EGD, a cystoscopy in 2018, and an abdominal CT scan with contrast in 2019, but no improvements were made with her abdominal pain -order placed for MRI abdomen and pelvis with contrast. Results will be sent to Dr. Bo endometriosis specialist -lab work ordered today Assessment & Plan (04/16/2022 6:47 PM CDT): HPI: Condition is stable A&P: Discussed/ordered labs, encouraged healthy, low carbohydrate lifestyle and at least 150min/week of exercise, continue on amitriptyline 25mg at bedtime Continue to see Dr. Gabo WATERS Please start taking probiotic 20-50billion CFU daily buttermaker continuous churn. This will help maintain the good bacteria that is in your gut. Assessment & Plan (10/16/2021 7:05 AM CDT): HPI: Condition is stable A&P: Discussed/ordered labs, encouraged healthy, low carbohydrate lifestyle and at least 150min/week of exercise, continue on amitriptyline 25mg at bedtime, continue seeing Dr. Gabo WATERS Please start taking probiotic 20-50billion CFU daily retirement. This will help maintain the good bacteria that is in your gut. Assessment & Plan (03/22/2021 1:31 PM CDT): HPI: Condition is stable A&P: Discussed/ordered labs, encouraged healthy, low carbohydrate lifestyle and at least 150min/week of exercise, continue on amitriptyline 25 mg at bedtime, continue seeing Dr. Gabo WATERS Please start taking probiotic 20-50billion CFU daily buttermaker continuous churn. This will help maintain the good bacteria that is in your gut. Please note that the refrigerated probiotics are going to be superior to the shelf stable ones. However, once the refrigerated ones are no longer cold, they are old and should be considered not effective. For this reason, I recommend purchasing a bottle of shelf stable ones also if you are going to be out of town or do not have a stable refrigeration system in place for the probiotic. Assessment & Plan (09/14/2020 1:44 PM DIRECTOR REVENUE): HPI: Condition is stable A&P: Discussed/ordered labs, encouraged healthy, low carbohydrate lifestyle and at least 150min/week of exercise, continue on Bentyl 20 mg 4 times daily in amitriptyline 25 mg at bedtime. Continue seeing Dr. Gabo WATERS Please start taking probiotic 20-50billion CFU daily retirement. This will help maintain the good bacteria that is in your gut. Please note that the refrigerated probiotics are going to be superior to the shelf stable ones. However, once the refrigerated ones are no longer cold, they are old and should be considered not effective. For this reason, I recommend purchasing a bottle of shelf stable ones also if you are going to be out of town or do not have a stable refrigeration system in place for the probiotic. Assessment & Plan (04/06/2020 7:40 AM CDT): HPI: Condition is stable A&P: Discussed/ordered labs, encouraged healthy, low carbohydrate lifestyle and at least 150min/week of exercise, continue on Bentyl 20 mg 4 times daily Assessment & Plan (04/28/2019 11:43 AM CDT): Condition is worsening. Pt has appt with gi doctor next week. 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 Check TSH on annual basis Assessment & Plan (04/16/2022 6:34 PM CDT): HPI: Condition is stable A&P: Discussed/ordered labs, encouraged healthy, low carbohydrate lifestyle and at least 150min/week of exercise, continue seeing Dr. Seb lundberg Continue on levothyroxine 100mcg daily Please take levothyroxine on an empty stomach. This means 1 hour before eating or 2 hours after eating. Food in the stomach will interfere with absorption of the levothyroxine. Calcium, antacids and iron supplements will also interfere with the absorption of levothyroxine. Please take these at a different time of the day. Assessment & Plan (04/07/2022 3:30 PM CDT): Diagnosed around 2014 Patient has been on Levothyroxine 100 mcg/day Patient is clinically euthyroid TSH was normal at 1.5 on 10/10/21 Plan: Continue same dose of Levothyroxine The proper way of taking Levothyroxine reviewed with patient. Check TSH I will adjust the dose if needed. Assessment & Plan (10/16/2021 7:06 AM CDT): HPI: Condition is stable A&P: US 08/30/2020 noted a left thyroid nodule. A biopsy showed abnormal cells, but Afirma was low suspicion for malignancy. Repeat thyroid US done on 04/25/2021 showed stable left lobe nodule, possible right nodule. When repeated before FNA biopsy, radiologist did not see a nodule. Continue seeing Dr. Seb lundberg who is monitoring thyroid and repeating ultrasound. Assessment & Plan (10/03/2021 3:21 PM CDT): Diagnosed around 2014 Patient has been on Levothyroxine 100 mcg/day She has positive anti-thyroid antibodies. Patient is clinically euthyroid TSH was normal at 2.3 on 03/22/21 Plan: Continue same dose of Levothyroxine The proper way of taking Levothyroxine reviewed with patient. Check TSH I will adjust the dose if needed. Assessment & Plan (03/28/2021 4:29 PM CDT): Diagnosed around 2014 Patient has been on Levothyroxine 100 mcg/day She has positive anti-thyroid antibodies. Patient is clinically euthyroid TSH was normal at 2.3 on 03/22/21 Plan: Continue same dose of Levothyroxine The proper way of taking Levothyroxine reviewed with patient. Assessment & Plan (03/22/2021 1:32 PM CDT): HPI: Condition is stable A&P: Discussed/ordered labs, encouraged healthy, low carbohydrate lifestyle and at least 150min/week of exercise, continue on levothyroxine, continue follow-up with Dr. Grigsby endocrinology Please take levothyroxine on an empty stomach. This means 1 hour before eating or 2 hours after eating. Food in the stomach will interfere with absorption of the levothyroxine. Calcium, antacids and iron supplements will also interfere with the absorption of levothyroxine. Please take these at a different time of the day. Assessment & Plan (09/14/2020 1:45 PM DIRECTOR REVENUE): HPI: Condition is stable A&P: Discussed/ordered labs, encouraged healthy, low carbohydrate lifestyle and at least 150min/week of exercise, continue on levothyroxine 100 mcg daily. Reviewed most recent TSH and free T4 drawn by Dr. Grigsby endocrinology on 08/02/2020 both were normal Had a biopsy and mid left lobe for nodule that was 1.5cm. there were atypical cells and had to send it off for genetic testing. She is awaiting results. Assessment & Plan (07/27/2020 4:11 PM DIRECTOR REVENUE): Diagnosed around 2014 Patient has been on Levothyroxine 100 mcg/day She has positive anti-thyroid antibodies. No thyromegaly detected. Patient is clinically euthyroid TSH was slightly low at 0.263 on 04/19/2020 Plan: The diagnosis reviewed and explained to patient. The abnormal TSh explained to patient Continue same dose of Levothyroxine The proper way of taking Levothyroxine reviewed with patient. Check TSH I will adjust the dose based on lab results. Assessment & Plan (04/06/2020 7:41 AM CDT): HPI: Condition is stable A&P: Discussed/ordered labs, encouraged healthy, low carbohydrate lifestyle and at least 150min/week of exercise, continue on Synthroid 100 mcg daily Gastroesophageal reflux disease 10/16/2017 Assessment & Plan (08/31/2024 11:44 AM DIRECTOR REVENUE): Increased symptoms of regurgitation and back pain despite Prilosec use. Pain radiates to the back and is exacerbated by bending over. No recent weight gain or late meals. Alcohol consumption causes stomach pain. -Continue Omeprazole. -Schedule endoscopy to evaluate esophagus and stomach. Assessment & Plan (08/03/2024 9:58 AM DIRECTOR REVENUE): -chronic, not at/near goal Start on omeprazole 20 mg daily. encouraged healthy diet and exercise Avoid trigger foods including: carbonated beverages, caffeine, spicy, fried foods, tomatoes, cucumbers, mint, and acidic fruits/juices like orange/lemon/grapefruit. Avoid eating/drinking anything for at least 2 hours before bed. Sleep with bed propped. Assessment & Plan (11/11/2018 3:43 PM CDT): Will start Prilosec 20 mg b.i.d.. Due to symptoms will also start Carafate 1 g q.i.d.. Discussed when to take medication. Referral to GI for further workup and possible EGD Assessment & Plan (10/16/2017 8:51 AM CDT): Zantac 300 mg b.i.d. Patient was provided with educational material regarding reflux precautions. Patient was instructed to refrain from eating a meal approximately 3 hours prior to bedtime. Patient was instructed to elevate the head of the bed by approximately 8 inches. Patient was to refrain from consuming spicy greasy fatty foods, dairy products, and excessive caffeine use. Patient was also advised to increase water consumption. Patient was also instructed on weight reduction and exercise regimen. Patient was also instructed on the importance of compliance with medications. Possible need for barium swallow esophagram Non-seasonal allergic rhinitis 11/26/2013 Overview (10/15/2016): Allergic rhinitis Assessment & Plan (08/03/2024 7:55 AM DIRECTOR REVENUE): -chronic, stable -seeing allergy and immunology provider in [facility] -patient is getting allergy shots Discussed environmental controls No smoking around patient, no animals in bedroom, keep windows closed, no hanging clothes on the line Take zyrtec/claritin/brittney in the am Saline rinse in the am Flonase 1 sprays each nostril, aim away from cartilage, spray once-baby sniff, switch to the other nostril and repeat. Saline rinse about 15 min before bed Flonase 1 sprays each nostril, aim away from cartilage, spray once-baby sniff, switch to the other nostril and repeat. If working or playing outside, may need to do saline rinses when coming in and change clothes right away Recommend staying on the above treatment from the of September to Come off of meds if possible during the summer Then restart on meds mid to february until Thanksgiving Come off of meds if possible during the winter Assessment & Plan (01/27/2024 12:05 PM CDT): -chronic, stable -seeing allergy and immunology provider in [place] -patient is getting allergy shots Discussed environmental controls No smoking around patient, no animals in bedroom, keep windows closed, no hanging clothes on the line Take zyrtec/claritin/brittney in the am Saline rinse in the am Flonase 1 sprays each nostril, aim away from cartilage, spray once-baby sniff, switch to the other nostril and repeat. Saline rinse about 15 min before bed Flonase 1 sprays each nostril, aim away from cartilage, spray once-baby sniff, switch to the other nostril and repeat. If working or playing outside, may need to do saline rinses when coming in and change clothes right away Recommend staying on the above treatment from the september to Come off of meds if possible during the summer Then restart on meds to february until Thanksgiving Come off of meds if possible during the winter Assessment & Plan (04/16/2022 6:47 PM CDT): HPI: Condition is stable A&P: Discussed environmental controls No smoking around patient, no animals in bedroom, keep windows closed, no hanging clothes on the line Take zyrtec/claritin/brittney in the am Saline rinse in the am Flonase 1 sprays each nostril, aim away from cartilage, spray once-baby sniff, switch to the other nostril and repeat. Saline rinse about 15 min before bed Flonase 1 sprays each nostril, aim away from cartilage, spray once-baby sniff, switch to the other nostril and repeat. If working or playing outside, may need to do saline rinses when coming in and change clothes right away Recommend staying on the above treatment from the of September to Come off of meds if possible during the summer Then restart on meds mid to february until Thanksgiving Come off of meds if possible during the winter Assessment & Plan (10/16/2021 7:04 AM CDT): HPI: Condition is stable A&P: Discussed environmental controls No smoking around patient, no animals in bedroom, keep windows closed, no hanging clothes on the line Take zyrtec/claritin/brittney in the am Saline rinse in the am Flonase 1 sprays each nostril, aim away from cartilage, spray once-baby sniff, switch to the other nostril and repeat. Saline rinse about 15 min before bed Flonase 1 sprays each nostril, aim away from cartilage, spray once-baby sniff, switch to the other nostril and repeat. If working or playing outside, may need to do saline rinses when coming in and change clothes right away Recommend staying on the above treatment from the of September to Come off of meds if possible during the summer Then restart on meds mid to february until Thanksgiving Come off of meds if possible during the winter Assessment & Plan (03/22/2021 1:31 PM CDT): HPI: Condition is stable A&P: Discussed environmental controls No smoking around patient, no animals in bedroom, keep windows closed, no hanging clothes on the line Take zyrtec/claritin/brittney in the am Saline rinse in the am Saline rinse about 15 min before bed Flonase 2 sprays each nostril, aim away from cartilage, spray once-baby sniff, switch to the other nostril and repeat. Wait a min or two and then do the second spray in each nostril, followed by a baby sniff If working or playing outside, may need to do saline rinses when coming in and change clothes right away Recommend staying on the above treatment from the of September to Come off of meds if possible during the summer Then restart on meds mid to february until Thanksgiving Come off of meds if possible during the winter Assessment & Plan (09/14/2020 1:02 PM DIRECTOR REVENUE): HPI: Condition is stable A&P: Discussed environmental controls No smoking around patient, no animals in bedroom, keep windows closed, no hanging clothes on the line Take zyrtec/claritin/allgera in the am Saline rinse in the am Saline rinse about 15 min before bed Flonase 2 sprays each nostril, aim away from cartilage, spray once-baby sniff, switch to the other nostril and repeat. Wait a min or two and then do the second spray in each nostril, followed by a baby sniff If working or playing outside, may need to do saline rinses when coming in and change clothes right away Recommend staying on the above treatment from the of September to Come off of meds if possible during the summer Then restart on meds mid to february until Thanksgiving Come off of meds if possible during the winter Assessment & Plan (04/06/2020 9:50 AM CDT): HPI: Condition is stable A&P: Discussed environmental controls No smoking around patient, no animals in bedroom, keep windows closed, no hanging clothes on the line Take zyrtec/claritin/allgera in the am Saline rinse in the am Saline rinse about 15 min before bed Flonase 2 sprays each nostril, aim away from cartilage, spray once-baby sniff, switch to the other nostril and repeat. Wait a min or two and then do the second spray in each nostril, followed by a baby sniff If working or playing outside, may need to do saline rinses when coming in and change clothes right away Recommend staying on the above treatment from the of September to Come off of meds if possible during the summer Then restart on meds mid to february until Thanksgiving Come off of meds if possible during the winter Assessment & Plan (10/16/2017 8:50 AM CDT): Recommend Zyrtec 10 mg q.day Recommend Atrovent nasal spray 0.06% 2 sprays in each nostril q.6 hours p.r.n. drainage and congestion Maintain compliance with medications in order to determine its effectiveness Generalized anxiety disorder 11/26/2013 Overview (10/15/2016): Anxiety Assessment & Plan (08/03/2024 7:55 AM DIRECTOR REVENUE): -chronic, stable -continue on sertraline 100 mg daily -continue seeing Psychology at [facility] for counseling Patient reiterated no suicidal thoughts at this time; take medication as directed; contact 911 and go to the ER if becomes suicidal; discussed side effects of medication with patient; encouraged healthy diet and exericise; encouraged patient to see a counselor Assessment & Plan (01/27/2024 12:06 PM CDT): -chronic, stable -continue on sertraline 100 mg daily -continue seeing Psychology at [facility] for counseling Patient reiterated no suicidal thoughts at this time; take medication as directed; contact 911 and go to the ER if becomes suicidal; discussed side effects of medication with patient; encouraged healthy diet and exericise; encouraged patient to see a counselor Assessment & Plan (07/22/2023 12:53 PM DIRECTOR REVENUE): Patient reiterated no suicidal thoughts at this time; take medication as directed; contact 911 and go to the ER if becomes suicidal; discussed side effects of medication with patient; encouraged healthy diet and exericise; encouraged patient to see a counselor -chronic, stable -continue on sertraline 100 mg daily and amitriptyline 25 mg at bedtime -continue seeing Psychology at [facility] for counseling -follow up in 4 months or sooner as needed Assessment & Plan (02/26/2023 10:56 AM CDT): Patient reiterated no suicidal thoughts at this time; take medication as directed; contact 911 and go to the ER if becomes suicidal; discussed side effects of medication with patient; encouraged healthy diet and exericise; encouraged patient to see a counselor -chronic, improving -continue on sertraline 100 mg daily and amitriptyline 25 mg at bedtime -continue seeing Psychology at [facility] for counseling -follow up in 4 months or sooner as needed Assessment & Plan (01/15/2023 12:17 PM CDT): Patient reiterated no suicidal thoughts at this time; take medication as directed; contact 911 and go to the ER if becomes suicidal; discussed side effects of medication with patient; encouraged healthy diet and exericise; encouraged patient to see a counselor -chronic, improving, but not at goal -Discussed/ordered labs -increase to Zoloft 100 mg daily -continue on amitriptyline 25 mg at bedtime -continue seeing Psychology at [facility] for counseling Assessment & Plan (11/13/2022 10:38 AM CDT): Patient reiterated no suicidal thoughts at this time; take medication as directed; contact 911 and go to the ER if becomes suicidal; discussed side effects of medication with patient; encouraged healthy diet and exericise; encouraged patient to see a counselor HPI: Condition is not at/near goal - Patient had 2 sudden deaths in the family recently and does not feel she has been on the increased dosage long enough to see if it is helpful. A&P: Discussed/ordered labs, encouraged healthy, low carbohydrate lifestyle and at least 150min/week of exercise, continue on Zoloft 50 mg daily and amitriptyline 25 mg at bedtime. Advised patient to keep appointment with Psychology [facility] for counseling or reschedule for later this month. Assessment & Plan (09/18/2022 10:57 AM DIRECTOR REVENUE): Patient reiterated no suicidal thoughts at this time; take medication as directed; contact 911 and go to the ER if becomes suicidal; discussed side effects of medication with patient; encouraged healthy diet and exericise; encouraged patient to see a counselor HPI: Condition is not at/near goal At the last visit, patient had started to wean off the escitalopram and started on Zoloft. A&P: Discussed/ordered labs, encouraged healthy, low carbohydrate lifestyle and at least 150min/week of exercise, increase to Zoloft 50 mg daily and continue on amitriptyline 25 mg at bedtime Refer sent to psychology [facility] for counseling per patient request. Assessment & Plan (07/17/2022 10:54 AM DIRECTOR REVENUE): Patient reiterated no suicidal thoughts at this time; take medication as directed; contact 911 and go to the ER if becomes suicidal; discussed side effects of medication with patient; encouraged healthy diet and exericise; encouraged patient to see a counselor HPI: Condition is worsening A&P: Discussed/ordered labs, encouraged healthy, low carbohydrate lifestyle and at least 150min/week of exercise, continue on amitriptyline 25 mg at bedtime. Taper off escitalopram and start zoloft 25 mg daily To discontinue the escitalopram: Week 1: Take, Take, Hold, Take, Take, Hold, Take Week 2: Take, Hold, Take, Hold, Take, Hold, Take Week 3: Hold, Hold, Take, Hold, Hold, Take, Hold Week 4: start Zoloft 25 mg daily Assessment & Plan (04/17/2022 8:30 AM CDT): Patient reiterated no suicidal thoughts at this time; take medication as directed; contact 911 and go to the ER if becomes suicidal; discussed side effects of medication with patient; encouraged healthy diet and exericise; encouraged patient to see a counselor HPI: Condition is worsening, would like an increase in escitalopram. Doesn't feel it is working as well as it was in the beginning. A&P: Discussed/ordered labs, encouraged healthy, low carbohydrate lifestyle and at least 150min/week of exercise, continue on amitriptyline 25mg at bedtime, we can increase the escitalopram from 10mg to 20mg at bedtime Assessment & Plan (10/16/2021 8:12 AM CDT): Patient reiterated no suicidal thoughts at this time; take medication as directed; contact 911 and go to the ER if becomes suicidal; discussed side effects of medication with patient; encouraged healthy diet and exericise; encouraged patient to see a counselor HPI: Condition is stable A&P: Discussed/ordered labs, encouraged healthy, low carbohydrate lifestyle and at least 150min/week of exercise, continue on amitriptyline 25mg at bedtime, escitalopram 10mg at bedtime. Recommend seeing counselor-pt not seeing counselor yet. Assessment & Plan (03/22/2021 1:53 PM CDT): Patient reiterated no suicidal thoughts at this time; take medication as directed; contact 911 and go to the ER if becomes suicidal; discussed side effects of medication with patient; encouraged healthy diet and exericise; encouraged patient to see a counselor HPI: Condition is stable A&P: Discussed/ordered labs, encouraged healthy, low carbohydrate lifestyle and at least 150min/week of exercise, continue on amitriptyline 25 mg at bedtime, Lexapro 10 mg bedtime Recommend seeing counselor-she has not been seeing counselor Assessment & Plan (09/14/2020 1:43 PM DIRECTOR REVENUE): Patient reiterated no suicidal thoughts at this time; take medication as directed; contact 911 and go to the ER if becomes suicidal; discussed side effects of medication with patient; encouraged healthy diet and exericise; encouraged patient to see a counselor HPI: Condition is not at/near goal has good days and bad days. A&P: Discussed/ordered labs, encouraged healthy, low carbohydrate lifestyle and at least 150min/week of exercise, continue on amitriptyline 25mg at bedtime, lexapro 10mg at night She has not set up an appointment with counselor Assessment & Plan (04/06/2020 9:50 AM CDT): Patient reiterated no suicidal thoughts at this time; take medication as directed; contact 911 and go to the ER if becomes suicidal; discussed side effects of medication with patient; encouraged healthy diet and exericise; encouraged patient to see a counselor HPI: Condition is worsening She would like to go back on medication, her says she gets angry easy year and has a lot of mood swings. Patient states that she does have to go outside calm herself down once she gets angry. Patient states she has been on Prozac in the past along with Wellbutrin. Patient states she has vivid dreams that she wakes up to and has lot of anxiety from them. She also describes symptoms that appear to be sleep paralysis. She also snores. She is having a hard time going to sleep, can't shut her brain off A&P: Discussed/ordered labs, encouraged healthy, low carbohydrate lifestyle and at least 150min/week of exercise, we will start patient on Lexapro 10 mg daily, side effects discussed. Will have patient download [employer] debo to help with biofeedback, patient to also reach out to her former counselor to see if she can get back in. Recommend making sure she sees a counselor who can focus on biofeedback for her. We will follow-up with patient in 4-6 weeks Other idiopathic scoliosis, thoracic region 12/2011 Assessment & Plan (04/17/2022 8:31 AM CDT): HPI: Condition is stable A&P: Discussed/ordered labs, encouraged healthy, low carbohydrate lifestyle and at least 150min/week of exercise, continue tylenol as needed and Vital Proteins Collagen Peptides two capfuls a day to help with joints Assessment & Plan (09/14/2020 1:04 PM DIRECTOR REVENUE): HPI: Condition is stable A&P: Discussed/ordered labs, encouraged healthy, low carbohydrate lifestyle and at least 150min/week of exercise, endocrinology recommended patient see rheumatology patient may trial on Vital Proteins Collagen Peptides one capful a day to help with joints Rosacea 12/17/2011 Assessment & Plan (07/17/2022 7:17 AM DIRECTOR REVENUE): HPI: Condition is stable A&P: Discussed/ordered labs, encouraged healthy, low carbohydrate lifestyle and at least 150min/week of exercise, continue wearing sunscreen, where had if you are going out in the sun. Continue using Cetaphil moisturizer Assessment & Plan (04/16/2022 6:48 PM CDT): HPI: Condition is stable A&P: Discussed/ordered labs, encouraged healthy, low carbohydrate lifestyle and at least 150min/week of exercise, continue wearing sunscreen, wear a hat if you are going to be out in the sun. cetaphil moisturizer. Assessment & Plan (10/16/2021 8:13 AM CDT): HPI: Condition is stable A&P: Discussed/ordered labs, encouraged healthy, low carbohydrate lifestyle and at least 150min/week of exercise, continue wearing sunscreen, wear a hat if your are going to be out in the sun. She is also using cetaphil moisturizers Assessment & Plan (03/22/2021 1:32 PM CDT): HPI: Condition is stable A&P: Discussed/ordered labs, encouraged healthy, low carbohydrate lifestyle and at least 150min/week of exercise, continue wearing sunscreen daily, where big floppy hat if you are going to be out in the sun Assessment & Plan (09/14/2020 1:03 PM DIRECTOR REVENUE): HPI: Condition is stable A&P: Discussed/ordered labs, encouraged healthy, low carbohydrate lifestyle and at least 150min/week of exercise, continue on wearing sunscreen daily Assessment & Plan (04/06/2020 7:41 AM CDT): HPI: Condition is stable A&P: Discussed/ordered labs, encouraged healthy, low carbohydrate lifestyle and at least 150min/week of exercise, continue wearing sunscreen daily Resolved Problems Problem Noted Date Diagnosed Date Resolved Date Numbness and tingling 04/06/20202024 Assessment & Plan (04/17/2022 8:27 AM CDT): HPI: Condition is stable A&P: Discussed/ordered labs, encouraged healthy, low carbohydrate lifestyle and at least 150min/week of exercise, continue on gabapentin 300mg twice daily. Pt seeing neurology Assessment & Plan (10/16/2021 8:09 AM CDT): HPI: Condition is stable A&P: Discussed/ordered labs, encouraged healthy, low carbohydrate lifestyle and at least 150min/week of exercise, pt saw neurology and rheumatology. Neurology is going to take a biopsy. She is improving with the gabapentin 300mg twice daily. Assessment & Plan (09/14/2020 1:38 PM DIRECTOR REVENUE): HPI: Condition is stable A&P: Discussed/ordered labs, encouraged healthy, low carbohydrate lifestyle and at least 150min/week of exercise, she saw neurology and rheumatology and now she is scheduled to see Dr. 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 Grigsby endocrinology Please take levothyroxine on an empty stomach. This means 1 hour before eating or 2 hours after eating. Food in the stomach will interfere with absorption of the levothyroxine. Calcium, antacids and iron supplements will also interfere with the absorption of levothyroxine. Please take these at a different time of the day. Assessment & Plan (09/14/2020 1:36 PM DIRECTOR REVENUE): HPI: Condition is stable A&P: Discussed/ordered labs, encouraged healthy, low carbohydrate lifestyle and at least 150min/week of exercise, continue on levothyroxine 100 mcg daily. Reviewed most recent TSH and free T4 drawn by Dr. Grigsby endocrinology on 08/02/2020 both were normal Had a biopsy and mid left lobe for nodule that was 1.5cm. there were atypical cells and had to send it off for genetic testing. She is awaiting results. Assessment & Plan (04/06/2020 9:46 AM CDT): HPI: Condition is stable A&P: Discussed/ordered labs, encouraged healthy, low carbohydrate lifestyle and at least 150min/week of exercise, continue follow-up with endocrinology Diarrhea 11/17/2018 04/06/2020 Overview (11/17/2018): Added automatically from request for surgery [id number] Abnormal LFTs 11/16/2018 04/28/2019 Overview (11/16/2018): Added automatically from request for surgery [id number] IUGR (intrauterine growth re striction) affecting care of mother 05/06/2018 11/11/2018 Cervical cerclage suture present 03/10/2018 11/11/2018 Supervision of other high ri sk , antepartum 02/23/2018 11/11/2018 Cervical incompetence affect ing , antepartum 02/22/2018 11/11/2018 Antepartum multigravida of a dvanced maternal age 0512/02/2017 11/11/2018 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 04/06/2020 resulting from ass isted reproductive technology in first trimester 11/26/2017 11/11/2018 Vaginal bleeding in pregnanc y, first trimester 11/26/2017 11/11/2018 Disorder of gallbladder 06/23/201602/10 Overview (10/16/2016): Gallbladder disease Endometriosis 12/17/2011 09/28/2023 Overview (11/11/2018): Endometriosis Assessment & Plan (01/15/2023 12:07 PM CDT): -chronic, not at goal -patient completed pelvic floor therapy in 2020, back physical therapy in 2022, 2 colonoscopies in the last 4 years, an EGD, a cystoscopy in 2018, and an abdominal CT scan with contrast in 2018, but no improvements were made with her abdominal pain -order placed for MRI abdomen and pelvis with contrast. Results will be sent to Dr. Bo endometriosis specialist -lab work ordered today Assessment & Plan (04/17/2022 8:23 AM CDT): HPI: Condition is stable A&P: Discussed/ordered labs, encouraged healthy, low carbohydrate lifestyle and at least 150min/week of exercise, no longer seeing [facility]IV[facility] Dr. Toñito Francis, now going to be seeing Dr. Vaca. Pt no longer using vivelle dot, continue on norethindrone 0.35mg daily Assessment & Plan (10/16/2021 8:07 AM CDT): HPI: Condition is stable A&P: Discussed/ordered labs, encouraged healthy, low carbohydrate lifestyle and at least 150min/week of exercise, continue on vivelle dot, pt had hysterectomy. Continue on collagen powder. F/u with [facility] Dr. Toñito Becker Assessment & Plan (03/22/2021 1:44 PM CDT): HPI: Condition is stable A&P: Discussed/ordered labs, encouraged healthy, low carbohydrate lifestyle and at least 150min/week of exercise, continue on vivelle dot, pt has hysterectomy. Continue on collagen powder Sees [facility], next appointment in May. She is wondering if her abd pain is from endo Assessment & Plan (09/14/2020 1:31 PM DIRECTOR REVENUE): HPI: Condition is stable A&P: Discussed/ordered labs, encouraged healthy, low carbohydrate lifestyle and at least 150min/week of exercise, patient had hysterectomy, uses vivelle dot for hormone Patient states she has is collagen peptides which is helped with her abdominal pain due to her endometriosis Assessment & Plan (04/06/2020 9:43 AM CDT): HPI: Condition is stable A&P: Discussed/ordered labs, encouraged healthy, low carbohydrate lifestyle and at least 150min/week of exercise, continue see angle roll operator Had hysterectomy, uses vivelle dot for hormone Patient states she uses collagen peptides which has helped her abdominal pain due to her endometriosis NVD (normal vaginal delivery) 11/06/2011 04/06/2020 Immunizations Immunization Administration Dates Next Due Influenza, Quadrivalent, Rec ombinant, Egg Free, Preservative Free, Intramuscular 05/04/2020 Influenza, Quadrivalent, Spl it, Intramuscular 06/13/2016 Influenza, Quadrivalent, Spl it, Preservative Free, Intramuscular 03/14/2023,04/17/2022,03/22/2021,03/25,04/16/2018,06/10/2017 Influenza, Split 04/11/2013 Influenza, Trivalent, IM (MDV) 04/12/2013,2011,04/12/2011 Influenza, Trivalent, Preser vative Free, Intramuscular 06/21/2012 Influenza, Unspecified 05/29/2024,05/04/2020 MMR 12/18/2010 Tdap 05/06/2018,09/19/2015 Social History Tobacco Use Types Packs/Day Years Used Date Smoking Tobacco: Former Cigarettes 0.5 13 0 07/13/1996 - 07/12/2009 Smokeless Tobacco: Former Tobacco Cessation:Counseling Given: Not Answered Alcohol Use Standard Drinks/Week Comments Yes 0 (1 standard drink = 0.6 oz pur e alcohol) occasionally Humiliation, Afraid, Rape, and Kick questionnair e Answer Date Recorded Within the last year, have y ou been afraid of your partner or ex-partner? No 09/28/2023 Within the last year, have y ou been humiliated or emotionally abused in other ways by your partner or ex-partner? No Within the last year, have y ou been kicked, hit, slapped, or otherwise physically hurt by your partner or ex-partner? No 09/28/2023 Within the last year, have y ou been raped or forced to have any kind of sexual activity by your partner or ex-partner? No 09/28/2023 AUDIT-C Answer Date Recorded Q1: How often do you have a drink containing alcohol? Never 11/24/2024 Q2: How many drinks containi ng alcohol do you have on a typical day when you are drinking? Patient does not drink Q3: How often do you have si x or more drinks on one occasion? Never 11/24/2024 PHQ-2 Answer Date Recorded PHQ-2 Total Score (If total score is 3 or more points, staff should administer the PHQ-9) 0 08/03/2024 Personal Safety Answer Date Recorded Have you ever been in or are you currently in a harmful physical or emotional relationship or is someone making you feel afraid or unsafe? Denies 11/24/2024 Comments No Sex and Gender Information Value Date Recorded Sex Assigned at Not on file Legal Sex Female 6:51 PM DIRECTOR REVENUE Gender Identity Not on file Sexual Orientation Straight 11/16/2018 8: 18 AM CDT Last Filed Vital Signs Vital Sign Reading Time Taken Comments Blood Pressure 107/71 11/24/2024 2:45 PM CDT Pulse 78 11/24/2024 2:45 PM CDT Temperature 36.9 C (98.4 F) 11/24/2024 12:58 PM CDT Respiratory Rate 15 11/24/2024 2:45 PM CDT Oxygen Saturation 100% 11/24/2024 2:45 PM CDT Inhaled Oxygen Concentration - - Weight 107 kg (236 lb) 11/24/2024 12:58 PM CDT Height 170.2 cm (5' 7) 11/24/2024 12:58 PM CDT Body Mass Index 36.96 11/24/2024 12:58 PM CDT Plan of Treatment Not on file Procedures Procedure Name Priority Date/Time Associated Diagnosis Comments EGD 11/24/2024 1:38 PM CDT BOUGIE DILATION 11/24/2024 1:31 PM CDT Dysphagia, unspecified type ESOPHAGOGASTRODUODENOSCOPY BIOPSY 11/24/2024 1:31 PM CDT Dysphagia, unspecified type SURGICAL PATHOLOGY Routine 11/24/2024 9:41 AM CDT Dysphagia, unspecified type DIAGNOSTIC MAMMOGRAM RIGHT W POLO Schedule Routine, Read Routine (OP Routine) 11/15/2024 9:53 AM CDT Abnormal mammogram SCREENING MAMMOGRAM BILATERA L W POLO Schedule Routine, Read Routine (OP Routine) 11/02/2024 9:26 AM CDT Screening mammogram, encounter for COLONOSCOPY 08/22/2022 11:33 AM DIRECTOR REVENUE HEPATITIS C ANTIBODY Routine 06/16/2019 10:39 AM DIRECTOR REVENUE Abnormal LFTs from Last 3 Months or Most Recently Relevant to Health Maintenance Results * EGD (11/24/2024 1:38 PM CDT) Anatomical Region Laterality Modality Other Narrative Procedure Note Gareth Whittaker MD - 11/24/2024 1:38 PM CDT [facility] End[facility] Patient Name: Isi Platt Procedure Date: 11/24/2024 1:38 PM Date of : 1980 Admit Type: Outpatient Age: 44 Gender: Female Note Status: Finalized Attending MD: Gareth Whittaker M.D. Procedure Date: 11/24/2024 Procedure: Upper GI endoscopy Indications: Dysphagia Providers: Gareth Whittaker M.D., BARBRA Gutierres (Anesthesia Staff), Christiana Rodriguez RN, Priscilla Puckett RN Referring MD: Renetta Parks NP Medicines: Monitored Anesthesia Care Complications: No immediate complications. Estimated Blood Loss: Estimated blood loss was minimal. Procedure: After obtaining informed consent, the endoscope was passed under direct vision. Throughout theprocedure, the patient's blood pressure, pulse, and oxygen saturations were monitored continuously. The scopewas passed under direct vision. The Endoscope was introduced through the mouth, and advanced to the second part of duodenum. The upper GI endoscopy was accomplished without difficulty. The patienttolerated the procedure well. Findings: The examined duodenum was normal. Diffuse mildly erythematous mucosa without bleeding was found in the gastric antrum. Biopsies were taken with a cold forceps forhistology. Estimated blood loss was minimal. The cardia and gastric fundus were normal on retroflexion. Mucosal changes including longitudinal furrows were found in theentire esophagus. Biopsies were taken with a cold forceps for histology. Estimated blood loss was minimal. The scope was withdrawn. Dilationwas performed with a Salguero dilator with mild resistance at 52 Fr and 56 Fr. Estimated blood loss was minimal. Impression: - Normal examined duodenum. - Erythematous mucosa in the antrum. Biopsied. - Esophageal mucosal changes suspicious for eosinophilic esophagitis. Biopsied. Dilated. Recommendation: - Await pathology results. - Observe patient's clinical course followingtoday's procedure with therapeutic intervention. - Perform ambulatory esophageal manometry at appointment to be scheduled. (if dysphagiapersists) Procedure Code(s): --- Professional --- 03040, Esophagogastroduodenoscopy, flexible, transoral; with biopsy, single or multiple 89127, Dilation of esophagus, by unguided sound or bougie, single or multiple passes Diagnosis Code(s): --- Professional --- K31.89, Other diseases of stomach and duodenum K22.89, Other specified disease of esophagus R13.10, Dysphagia, unspecified CPT copyright 2020 [employer]. All rights reserved. The codes documented in this report are preliminary and upon quill cleaning machine operator reviewmay be revised to meet current compliance requirements. Electronically signed by Gareth Whittaker M.D. Gareth Whittaker M.D. 11/24/2024 2:00:38 PM Number of Addenda: 0 Note Initiated On: 11/24/2024 1:38 PM Gareth Whittaker MD ENDOSCOPY PROCEDURES Ed ited Result - Final * Surgical pathology (11/24/2024 9:41 AM CDT) Tissue (Gastric/Stomach biopsy) 11/24/2024 1:49 PM CDT Tissue specimen (specimen) (Esophageal biopsy) 11/24/2024 1:50 PM CDT Narrative PATHOLOGY - 11/28/2024 11:03 AM CDT EPIC results best viewed via link to PDF [facility] Department of Pathology [address] [place] [id number] Note to Patients: This report may contain a detailed description of human tissue sent by a health care provider to the laboratory for pathologic evaluation. The content of this report is essential for diagnosis and may provide important critical findings. This information may be unfamiliar to patients to review without a medical professional present. It is advised that the patient review this report in the presence of a health care provider who can answer questions and explain the details. Final Report with Addendum Patient Name: ISI PLATT Address: [address] [place] [address]- Gender: F : 1980 (Age: 44) Service: Gastro Location: GI Lab Hospital #: [id number] Patient Type: [facility] Taken: 11/24/2024 Received: 11/25/2024 Accessioned: 11/25/2024 Reported: 11/28/2024 Physician(s):Dr. Gareth Whittaker M.D. Kendell Camargo.N.Bishop Diagnosis: A. Gastric, antrum, biopsy: - Antral mucosa with reactive gastropathy and very focal active chronic gastritis - No Helicobacter pylori like organisms identified on H&E stained sections, immunostains for H pylori pending will be reported in addendum - No definitive intestinal metaplasia identified B. Esophagus, biopsy: - Squamous mucosa with mild hyperplasia - No increase in intraepithelial eosinophils present Aurelia Michael M.D. Report Electronically Reviewed and Signed Out By Aurelia Michael M.D. 11/28/2024 11:03:51 Procedure/Addenda: Addendum Addendum Comment Immunostain for H. pylori is interpreted as negative Hansini Laharwani,M.D.Report Electronically Reviewed and Signed Out By Aurelia Michael M.D. 11/28/2024 15:03:50 Specimen(s) Received: A: Gastric antrum biopsy B: Esophagus biopsy r/o EOE Microscopic Description: Microscopic examination substantiates the above diagnosis. Clinical History: Dysphagia, unspecified type Gross Description: The specimen is submitted in two formalin containers labeled ISI PLATT. A. The first container is labeled gastric antrum. It is 2 fragments of jj tissue between 1 and 2 mm. All in A. B. The second container is labeled esophagus. It is one jj 2 mm fragment. All in B. T.A. Ch[place] Arriaga., Heriberto./Aurelia Michael M.D. REPORT IMAGES AND SCANNED DOCUMENTS, IF INCLUDED, ONLY VIEWABLE IN PDF VERSION OF REPORT The performance characteristics of some immunohistochemical stains, fluorescence in-situ hybridization tests and immunophenotyping by flow cytometry cited in this report (if any) were determined by the Surgical Pathology Department at [facility] as part of an ongoing quality control checker program and in compliance with federally mandated regulations drawn from the Clinical Laboratory Improvement Act of 1988 (CLIA '88). Some of these tests rely on the use of analyte specific reagents and are subject to specific labeling requirements by the US Food and Drug Administration. Such diagnostic tests may only be performed in a facility that is certified by the Department of Health and Human Services as a high complexity laboratory under CLIA '88. The FDA has determined that such clearance or approval is not necessary. This test is used for clinical purposes. It should not be regarded as investigational or for research. Nevertheless, federal rules concerning the medical use of analyte specific reagents require that the following disclaimer be attached to the report: This test was developed and its performance characteristics determined by the Surgical Pathology Department [facility]. It has not been cleared or approved by the U. S. Food and Drug Administration. Note for decalcified specimens: This assay has not been validated on decalcified tissues. Results should be interpreted with caution given the possibility of false negativity on decalcified specimens us Gareth Whittaker MD LAB PATHOLOGY ORDERABLE S Final Result PATHOLOGY [id number] [place] [address] * Diagnostic Mammogram Right W Polo (11/15/2024 9:53 AM CDT) Anatomical Region Laterality Modality Breast Right Mammography 11/15/2024 10:5 3 AM CDT Impressions 11/15/2024 10:53 AM CDT No persistent abnormality identified on additional views. OVERALL FINAL ASSESSMENT: BI-RADS Category 1: Negative. RECOMMENDATION: Annual screening mammogram recommended. Annual screening breast MRI can be considered for supplemental screening given dense breast tissue. Electronically signed by: KAMRON HYMAN MD Narrative 11/15/2024 10:53 AM CDT EXAMINATION: RIGHT UNILATERAL DIGITAL DIAGNOSTIC MAMMOGRAM AND DIGITAL BREAST TOMOSYNTHESIS HISTORY: 44-year-old female called back from screening mammogram from 11/02/2024 for asymmetry seen in the upper region of the right breast only on the MLO view. COMPARISON: 11/02/2024 and multiple priors dating back to 2019 TECHNIQUE: Full field digital mammographic views of the RIGHT breast were performed, including computer aided detection (CAD) and digital breast tomosynthesis (DBT). BREAST PARENCHYMAL COMPOSITION: The breasts are heterogeneously dense, which may obscure small masses. MAMMOGRAM FINDINGS: The asymmetry does not persist on additional images and likely represents overlapping dense fibroglandular tissue. Renetta Parks NP IMG MAMMO PROCEDURES Final R esult * (ABNORMAL) Screening Mammogram Bilateral W Polo (11/02/2024 9:26 AM CDT) Anatomical Region Laterality Modality Breast Bilateral Mammography Impressions 11/02/2024 11:48 AM CDT Right 1) Asymmetry: Right breast asymmetry in the upper region. Assessment: 0 - Incomplete. Diagnostic mammogram with possible ultrasound is recommended. Left No evidence of malignancy. OVERALL BI-RADS FINAL ASSESSMENT: 0 - Incomplete: Needs Additional Imaging Evaluation RECOMMENDATIONS: Recommend right breast diagnostic mammogram with possible ultrasound. Narrative 11/02/2024 11:48 AM CDT EXAMINATION: Screening Mammogram Bilateral W Polo: 11/02/2024 COMPARISON: Relevant prior studies available at the time of interpretation were reviewed. TECHNIQUE: Mammography was performed with 2D and digital breast tomosynthesis (DBT) images. CAD was utilized. BREAST PARENCHYMAL COMPOSITION: The breasts are heterogeneously dense, which may obscure small masses. FINDINGS: Right 1) Asymmetry: There is an asymmetry seen in the upper region of the right breast on the MLO view. This finding needs additional imaging evaluation. Left There is no suspicious mass, calcification, or architectural distortion. us Self Screening Mammogram IMG MAMMO PROCEDURES Fi nal Result * COLONOSCOPY (08/22/2022 11:33 AM DIRECTOR REVENUE) Anatomical Region Laterality Modality Other Narrative Procedure Note Keron Ayon MD - 08/22/2022 11:33 AM CST [facility] Endoscopy Lab Patient Name: Isi Platt Procedure Date: 08/22/2022 11:33 AM Date of : 1980 Admit Type: Outpatient Age: 41 Gender: Female Note Status: Finalized Attending MD: Keron Ayon M.D. Procedure Date: 08/22/2022 Procedure: Colonoscopy Indications: Rectal bleeding Providers: Keron Ayon M.D., Sofia Schumacher CRNA (Anesthesia Staff), Zina Joya RN, Anastasia, Technologist Referring MD: Renetta Parks Medicines: Monitored Anesthesia Care Complications: No immediate complications. Estimated Blood Loss: Estimated blood loss: none. Procedure: Pre-Anesthesia Assessment: - Airway Examination: normal oropharyngeal airwayand neck mobility. - Respiratory Examination: clear to auscultation. - ASA Grade Assessment: III - A patient with severe systemic disease. - After reviewing the risks and benefits, thepatient was deemed in satisfactory condition to undergo the procedure. - The risks and benefits of the procedure and the sedation options and risks were discussed with the patient. All questions were answered and informed consent was obtained. After I obtained informed consent, the scope was passed under direct vision. Throughout theprocedure, the patient's blood pressure, pulse, and oxygen saturations were monitored continuously. The scopewas passed under direct vision. The Colonoscope was introduced through the anus and advanced to the the cecum, identified by the appendiceal orifice, ileocecal valve and palpation. The colonoscopy was performed with ease. The patient tolerated the procedure well. The quality of the bowelpreparation was good. The quality of the bowel preparation was good. The quality of the bowel preparation was evaluated using the BBPS ([place] Bowel Preparation Scale) with scores of: Right Colon = 3, Transverse Colon = 3 and Left Colon = 3 (entire mucosa seenwell with no residual staining, small fragments of stoolor opaque liquid). The total BBPS score equals 9. The bowel preparation used was Clenpiq via split dose instruction. Bowel prep was administered using asplit dose. Findings: The perianal and digital rectal examinations were normal. Internal hemorrhoids were found during retroflexion. The hemorrhoids were mild. Impression: - Internal hemorrhoids. - No specimens collected. Recommendation: - Repeat colonoscopy in 10 years for screening purposes. - Discharge patient to home (ambulatory). - Use original regular Metamucil one teaspoon POBID. Procedure Code(s): --- Professional --- 43509, Colonoscopy, flexible; diagnostic, including collection of specimen(s) by brushing or washing,when performed (separate procedure) Diagnosis Code(s): --- Professional --- K64.8, Other hemorrhoids K62.5, Hemorrhage of anus and rectum CPT copyright 2020 [employer]. All rights reserved. The codes documented in this report are preliminary and upon quill cleaning machine operator reviewmay be revised to meet current compliance requirements. Electronically signed by Keron Ayon MD Keron Ayon M.D. 08/22/2022 12:06:10 PM Number of Addenda: 0 Note Initiated On: 08/22/2022 11:33 AM Keron Ayon MD ENDOSCOPY PROCEDURES Final Resul t * Hepatitis C antibody (06/16/2019 10:39 AM DIRECTOR REVENUE) Hep C Ab Negative Negative DEBBIE LÓPEZ Blood specimen (specimen) 06/16/2019 10:39 AM DIRECTOR REVENUE 06/16/2019 4:11 PM DIRECTOR REVENUE Keron Ayon MD LAB MICROBIOLOGY - GENERAL ORDER DOMENICO Final Result DEBBIE [id number] [address] Department of Laboratories [place] [id number] from Last 3 Months or Most Recently Relevant to Health Maintenance Insurance [facility] CHOICE PLUS CHOICE PLUS CHOICE PLUS Advance Directives For more information, please contact: [phone] * Full Code (Latest Code Status on File) Date Activated Date Inactivated Comments 06/18/2018 11:20 AM 06/20/2018 4:20 PM * Full Code Date Activated Date Inactivated Comments 06/17/2018 7:22 AM 06/18/2018 11:20 AM Full CPR in case of cardiopulmonary arrest * Full Code Date Activated Date Inactivated Comments 06/04/2018 11:39 AM 06/04/2018 6:05 PM * Full Code Date Activated Date Inactivated Comments 02/22/2018 3:08 PM 02/23/2018 8:04 PM Care Teams Manager User Interface Relationship Specialty Start Date End Date Renetta Parks NP 2 [facility] [address] [place] [address] PCP - General Family Medicine 07/17/22 Keron Ayon MD Consulting Physician Gastroenterology 04/06/20 Masoud Resendiz MD 1 [place] [address] Fellow Neurology 03/22/21 Kae Vaughan MD 4 [facility] [address] [place] [address] Consulting Physician Obstetrics and Gynecology 01/27/24 Adriana Vazquez MD 4 [facility] [address] [place] [address] Consulting Physician Sleep Medicine 01/27/24
--- OUTSIDE RECORDS SUMMARY | 2024-12-14 13:40 | XMS_ITS | Encounter Summary ---
Author Organization [facility] Address [address] [place] [address] Phone Care Team Providers Care Supervisor Spring Up Name Role Phone Debora Gale MD Primary Care Provider Transcribed Order, Provider Unavailable Unav ailable Nadia Camarena PT Unavailable Unavailable Corinna Herzog WEDDING FLORIST Unavailable Unavailable Toñito Katz MD Unavailable Nancy Wellington AUTOMOBILE BRAKE BONDER Primary Care Provider [phone] Keron Ayon MD Unavailable Thalia Nieto MD Unavailable [phone] Toñito Katz MD Unavailable Erik Kitchen MD Unavailable [phone] Elayne Horner MD Unavailable Masoud Resendiz MD Unavailable [phone] Aba-Oswaldo Montiel MD Unavailable [phone] Jory Coley Che, MD Unavailable [phone] Renetta Parks AUTOMOBILE BRAKE BONDER Primary Care Provider [phone] Alondra Cuello PT Unavailable Unavaila kaylin Bo Jr., MD, Patrick Peter Unavailable [phone] Kae Vaughan MD Unavailable [phone] Adriana Vazquez MD Unavailable Encounter Details Date Type Department Care Team (Late st Contact Info) Description 12/10/2017 Orders Only [facility] Provider, MD [address] [place] [id number] Social History Tobacco Use Types Packs/Day Years Used Date Smoking Tobacco: Former Smokeless Tobacco: Former Alcohol Use Standard Drinks/Week Comments Yes 0 (1 standard drink = 0.6 oz pur e alcohol) Comments Yes Sex and Gender Information Value Date Recorded Sex Assigned at Not on file Legal Sex Female 6:51 PM WEIGHBRIDGE OPERATOR Gender Identity Not on file Sexual Orientation Straight 11/16/2018 8: 18 AM CDT documented as of this encounter Plan of Treatment Not on file documented as of this encounter Procedures Procedure Name Priority Date/Time Associated Diagnosis Comments DISCHARGE LABORATORY CUMULATIVE REPORT 12/10/2017 12:00 AM CDT DISCHARGE LABORATORY CUMULATIVE REPORT 12/10/2017 12:00 AM CDT documented in this encounter Results * DISCHARGE LABORATORY CUMULATIVE REPORT (12/10/2017 12:00 AM CDT) Narrative 12/10/2017 12:00 AM CDT Ordered by an unspecified provider. Historical Provider LAB BLOOD ORDERABLES Daphnie l Result * DISCHARGE LABORATORY CUMULATIVE REPORT (12/10/2017 12:00 AM CDT) Narrative 12/10/2017 12:00 AM CDT Ordered by an unspecified provider. Historical Provider LAB BLOOD ORDERABLES Daphnie l Result documented in this encounter Visit Diagnoses Not on filedocumented in this encounter Additional Health Concerns Infection Onset Date Last Indicated Resolved Time COVID: Suspected 06/30/2022 06/30/2022 06/30/2022 5:09 PM WEIGHBRIDGE OPERATOR Influenza, adult 06/30/2022 06/30/2022 07/07/2022 3:06 AM WEIGHBRIDGE OPERATOR documented as of this encounter Care Teams Supervisor Spring Up Relationship Specialty Start Date End Date Debora Gale MD PCP - General 07/22/10 03/24/19 Nancy Wellington NP [address] [place] [address] PCP - General Family Medicine 03/25/19 07/16/22 Renetta Parks NP [address] [address] PCP - General Family Medicine 07/17/22 Transcribed Order, Provider 06/22/17 01/26/24 Nadia Camarena, PT Physical Therapist Physical Therapy 06/23/17 03/21/21 Corinna Herzog, WEDDING FLORIST Physical Therapist Physical Therapy 06/29/17 03/21/21 Toñito Katz MD [address] [place] [address] [place] [address] Referring Physician Obstetrics and Gynecology 12/02/17 04/16/22 Keron Ayon MD [address] [place] [address] [place] [address] Consulting Physician Gastroenterology 04/06/20 Thalia Nieto MD [address] [place] [address] [place] [address] Referring Physician Urology 04/06/20 04/16/22 Toñito Katz MD [address] [place] [address] [place] [address] Consulting Physician Obstetrics and Gynecology 04/06/20 04/06/20 Erik Kitchen MD [address] [place] [address] Referring Physician Rheumatology 04/06/20 04/16/22 Elayne Horner MD [address] [facility] [address] [place] [address] Referring Physician Neurology 04/06/20 01/26/24 Masoud Resendiz MD 1 [place] [address] Fellow Neurology 03/22/21 Oswaldo Vaca MD [address] [facility] [address] [place] [address] Obstetrics and Gynecology 04/17/2201/10 Jory Coley Che, MD [address] [facility] [address] [place] [address] Referring Physician Obstetrics and Gynecology 04/17/22 01/26/24 Alondra Cuello, PT Physical Therapist Physical Therapy 08/04/22 01/26/24 Gamaliel Bo Jr., MD [address] [place] [address] Referring Physician Obstetrics and Gynecology 01/15/23 01/26/24 Kae Vaughan MD [address] [facility] [address] [place] [address] Consulting Physician Obstetrics and Gynecology 01/27/24 Adriana Vazquez MD [address] [place] [address] [address] [place], [place] [address], [place] [address] Consulting Physician Sleep Medicine 01/27/24 documented as of this encounter
--- OUTSIDE RECORDS SUMMARY | 2024-12-14 13:40 | XMS_ITS | Encounter Summary ---
Author Organization [facility] Address [address] [place] [address] Phone Care Team Providers Care Co Founder And Cto Name Role Phone Transcribed Order, Provider Unavailable Unav ailable Nadia Camarena PT Unavailable Unavailable Corinna Herzog HARDWOOD FLOOR INSTALLATION HELPER Unavailable Unavailable Toñito Katz MD Unavailable Nancy Wellington RECREATION COUNSELOR Primary Care Provider Keron Ayon MD Unavailable Thalia Nieto MD Unavailable Erik Kitchen MD Unavailable [phone] Elayne Horner MD Unavailable Masoud Resendiz MD Unavailable Aba-Oswaldo Montiel MD Unavailable [phone] Jory Coley Che, MD Unavailable [phone] Renetta Parks RECREATION COUNSELOR Primary Care Provider [phone] Alondra Cuello PT Unavailable Unavaila kaylin Bo Jr., MD, Patrick Peter Unavailable [phone] Kae Vaughan MD Unavailable [phone] Adriana Vazquez MD Unavailable Encounter Details Date Type Department Care Team (Late st Contact Info) Description 10/04/2020 Orders Only [facility] [address] [place] [address] Scanning, Provider Social History Tobacco Use Types Packs/Day Years Used Date Smoking Tobacco: Former Cigarettes 0.5 13 0 07/13/1996 - 07/12/2009 Smokeless Tobacco: Former Alcohol Use Standard Drinks/Week Comments Yes 0 (1 standard drink = 0.6 oz pur e alcohol) occasionally PHQ-2 Answer Date Recorded PHQ-2 Total Score (If total score is 3 or more points, staff should administer the PHQ-9) 0 07/03/2020 Comments No Sex and Gender Information Value Date Recorded Sex Assigned at Not on file Legal Sex Female 6:51 PM BARREL CHARRER HELPER Gender Identity Not on file Sexual Orientation Straight 11/16/2018 8: 18 AM CDT documented as of this encounter Plan of Treatment Not on file documented as of this encounter Procedures Procedure Name Priority Date/Time Associated Diagnosis Comments SCAN - OTHER ORDERS 10/04/2020 documented in this encounter Results * SCAN - OTHER ORDERS (10/04/2020) Provider Scanning Final Result documented in this encounter Visit Diagnoses Not on filedocumented in this encounter Additional Health Concerns Infection Onset Date Last Indicated Resolved Time COVID: Suspected 06/30/2022 06/30/2022 06/30/2022 5:09 PM BARREL CHARRER HELPER Influenza, adult 06/30/2022 06/30/2022 07/07/2022 3:06 AM BARREL CHARRER HELPER documented as of this encounter Care Teams Co Founder And Cto Relationship Specialty Start Date End Date Nancy Wellington NP [address] [facility] [address] [place] [address] PCP - General Family Medicine 03/25/19 07/16/22 Renetta Parks NP 2 [facility] [address] [place] [address] PCP - General Family Medicine 07/17/22 Transcribed Order, Provider 06/22/17 01/26/24 Nadia Camarena, PT Physical Therapist Physical Therapy 06/23/17 03/21/21 Corinna Herzog, HARDWOOD FLOOR INSTALLATION HELPER Physical Therapist Physical Therapy 06/29/17 03/21/21 Toñito Katz MD [address] [facility] [address] [place] [address] Referring Physician Obstetrics and Gynecology 12/02/17 04/16/22 Keron Ayon MD [address] [facility] [address] [place] [address] Consulting Physician Gastroenterology 04/06/20 Thalia Nieto MD [address] [facility] [address] [place] [address] Referring Physician Urology 04/06/20 04/16/22 Erik Kitchen MD [address] [facility] [address] [place] [address] Referring Physician Rheumatology 04/06/20 04/16/22 Elayne Horner MD [address] [place] [address] Referring Physician Neurology 04/06/20 01/26/24 Masoud Resendiz MD 1 [place] [address] Fellow Neurology 03/22/21 Oswaldo Vaca MD [address] [place] [address] Obstetrics and Gynecology 04/17/2201/10 Jory Coley Che, MD [address] [place] [address] Referring Physician Obstetrics and Gynecology 04/17/22 01/26/24 Alondra Cuello, PT Physical Therapist Physical Therapy 08/04/22 01/26/24 Gamaliel Bo Jr., MD [address] [place] [address] Referring Physician Obstetrics and Gynecology 01/15/23 01/26/24 Kae Vaughan MD [address] [place] [address] [address] [place], [place] [address] [address] Consulting Physician Obstetrics and Gynecology 01/27/24 Adriana Vazquez MD [address] [place] [address] [address] [place], [place] [address] [address] Consulting Physician Sleep Medicine 01/27/24 documented as of this encounter
--- OUTSIDE RECORDS SUMMARY | 2024-12-14 13:40 | XMS_ITS | Encounter Summary ---
Author Organization [facility] Address [address] [place] [address] Care Team Providers Care Flat Spring Assembler Name Role Phone Keron Ayon MD Unavailable Masoud Resendiz MD Unavailable [phone] Renetta Parks NP Primary Care Provider [phone] Kae Vaughan MD Unavailable [phone] Adriana Vazquez MD Unavailable Encounter Details Date Type Department Care Team (Late st Contact Info) Description 11/29/2024 Results Follow-Up [facility] Medical Group Primary Care at [address] [place] [address] Kia Gómez, IVON [address] [place] [address] [address] [place] [address] Surgical pathology Social History Tobacco Use Types Packs/Day Years [...] on file Legal Sex Female 6:51 PM AUTOMATIC PROFILE SANDER OPERATOR Gender Identity Not on file Sexual Orientation Straight 11/16/2018 8: 18 AM CDT documented as of this encounter Plan of Treatment Not on file documented as of this encounter Visit Diagnoses Not on filedocumented in this encounter Care Teams Flat Spring Assembler Relationship Specialty Start Date End Date Renetta Parks NP [address] [facility] [address] [place] [address] PCP - General Family Medicine 07/17/22 Keorn Ayon MD Consulting Physician Gastroenterology 04/06/20 Masoud Resendiz MD 1 [place] [address] Fellow Neurology 03/22/21 Kae Vaughan MD [address] [facility] [address] [place] [address] Consulting Physician Obstetrics and Gynecology 01/27/24 Adriana Vazquez MD [address] [place] [address] [address] [place], [place] [address] Consulting Physician Sleep Medicine 01/27/24 documented as of this encounter
--- OUTSIDE RECORDS SUMMARY | 2024-12-14 13:40 | XMS_ITS | Clinical Summary ---
Author Organization [facility] Address [address] [place] [address] Phone Care Team Providers Care Header Setup Operator Name Role Phone Nancy Wellington [facility] Primary Care Prov ider Allergies Active Allergy Reactions Criticality Noted Date Comments Adhesive Tape-Silicones Itching,Rash Low 04/23/2017 Hydrocodone Abdominal Pain,Itching,Nausea and Vomiting,Rash Medium 12/25/2016 Oxycodone Abdominal Pain,Itching,Rash Low 02/16/2020 Sulfa (Sulfonamide Antibiotics) Rash Low 02/16/2020 Medications loratadine (CLARITIN) 10 mg Oral tablet Take 10 mg by mouth daily. Active Vivelle-Dot 0.1 mg/24 hr patch APPLY ONE PATCH TWICE WEEKLY 12/27/2019 Active amitriptyline (ELAVIL) 25 mg tablet TAKE 1 TABLET(25 MG) BY MOUTH EVERY NIGHT 01/30/2020 Active acetaminophen (TYLENOL) 500 mg tablet Take 500 mg by mouth. Active ascorbic acid, vitamin C, (Vitamin C) 1,000 mg Tablet Acti ve cholecalciferol, Vitamin D3, 125 mcg (5,000 unit) Capsule Take 5,000 Units by mouth. Active dicyclomine (BENTYL) 20 mg tablet Take 20 mg by mouth. 03/25/2019 Active Levothyroxine 100 mcg Capsule Take 100 mcg by mouth. Active oxybutynin chloride (DITROPAN XL) 5 mg Extended Release 24 hour tablet Take 5 mg by mouth. 05/05/2019 Active pravastatin (PRAVACHOL) 10 mg tablet TK 1 T PO D 05/05/2019 Active Active Problems Problem Noted Date Diagnosed Date NVD F 11/0511/06/2011 Comments Yes Resolved Problems Problem Noted Date Diagnosed Date Resolved Date SROM 23:50, O+, gbs neg 11/06/201110/12 Immunizations Immunization Administration Dates Next Due Influenza Seasonal Unspecified Formulation IM Family History Medical History Relation Name Comments Healthy Father Healthy Mother Relation Name Status Comments Father Alive Mother Alive Social History Tobacco Use Types Packs/Day Years Used Date Smoking Tobacco: Former Alcohol Use Standard Drinks/Week Comments No 0 (1 standard drink = 0.6 oz pur e alcohol) Comments Yes Sex and Gender Information Value Date Recorded Sex Assigned at Not on file Legal Sex Female 6:08 AM FRUIT EXPRESS AGENT Gender Identity Not on file Sexual Orientation Not on file Occupation Industry Job Start Date Job End Date Not on file Not on file Not on file Not on file Last Filed Vital Signs Vital Sign Reading Time Taken Comments Blood Pressure 120/78 11/08/2011 7:55 AM CDT Pulse 78 11/08/2011 7:55 AM CDT Temperature 36.9 C (98.5 F) 11/08/2011 7:55 AM CDT Respiratory Rate 18 11/08/2011 7:55 AM CDT Oxygen Saturation 98% 11/08/2011 1:01 AM CDT Inhaled Oxygen Concentration - - Weight 89.8 kg (198 lb) 02/16/2020 3:16 PM CDT Height 167.6 cm (5' 6) 02/16/2020 3:16 PM CDT Body Mass Index 31.96 02/16/2020 3:16 PM CDT Plan of Treatment Health Maintenance Due Date Last Done Comments HEPATITIS B VACCINES (1 of 3 - 19+ 3-dose series) 2000 HPV/Cotest (21-29) 2002 CERVICAL CANCER SCREENING 10/28/2011 HPV/Cotest (30-65) 10/28/2011 PAP SMEAR 10/28/2011 BREAST CANCER SCREENING 2021 INFLUENZA VACCINE (#1) 2024 9, 03/25/2019, 04/16/2018, Additional history exists DTAP/TDAP/TD VACCINES (3 - Td or Tdap) 05/06/2028 05/06/2018, 09/19/2015 RSV VACCINE (60+ or ) (1 - 1-dose 75+ series) 2056 HPV VACCINES Aged Out No longer eligi ble based on patient's age to complete this topic Insurance Advance Directives For more information, please contact: [phone] * Full Code (Latest Code Status on File) Date Activated Date Inactivated Comments 11/06/2011 11:44 PM 11/08/2011 11:27 PM * Full Code Date Activated Date Inactivated Comments 11/06/2011 3:04 AM 11/06/2011 11:44 PM * Full Code Date Activated Date Inactivated Comments 11/06/2011 2:33 AM 11/06/2011 3:04 AM Care Teams Header Setup Operator Relationship Specialty Start Date End Date Nancy Wellington FNP PCP - General NURSE PRACTITIONER 02/16/20
--- OUTSIDE RECORDS SUMMARY | 2024-12-14 13:40 | XMS_ITS | Clinical Summary ---
Author Organization [facility] Address [address] [place] [address] Care Team Providers Care Candle Wrapping Machine Operator Name Role Phone Stella Parks Primary Care Provider [phone] Source Comments [facility],non-owned Affiliates and Associated Physician Practices is amultiple site organization consisting of ambulatory clinics and hospital sitesin [place], [place], [place] and [place]. This disclosure is being madepursuant to the Care Everywhere program and may not contain all information available regarding this patient. Last updated 18.[facility] Allergies Active Allergy Reactions Criticality Noted Date Comments Adhesive Sensitivity Rash Medium 04/23/2017 DERMABOND Hydrocodone Rash,Nausea and/or Vomiting Medium 017 Sulfa Drugs Rash Medium 04/23/2017 Medications * Be aware that medications may not be up to date on this document. Alwaysverify current medications with the patient. acetaminophen (TYLENOL) 500 MG tablet Take 1 (one) tablet by mouth Active pravastatin (PRAVACHOL) 10 MG tablet Take 1 (one) tablet by mouth at bedtime Active vitamin D3 (VITAMIN D3 MAXIMUM STRENGTH) 125 MCG (5000 UT) capsule Take 1 (one) capsule by mouth once daily Active Multiple Vitamins-Minera ls (ONE-A-DAY FOR HER VITACRAVES PO) Activ e norethindrone (Ortho Micronor) 0.35 MG tablet Take 1 (one) tablet by mouth once daily 1 packet 11 2 Active Additional Information Patient not taking.Reported on 06/22/2023 amitriptyline (Elavil) 50 MG tablet 2 Active gabapentin (Neurontin) 300 MG capsule Take 1 (one) capsule by mouth 2 times daily 1 Active levothyroxine (Synthroid) 100 MCG tablet 2 Active pantoprazole EC (Protonix) 40 MG tablet 2 Active Probiotic Product (PROBIOTIC PO) Activ e diphenhydrAMINE (Benadryl) 25 MG capsule Take 1 (one) capsule by mouth every 4 hours as needed for Itching Active fluticasone propionate (Flonase) 50 MCG/ACT nasal spray [place] 2 (two) sprays into each nostril once daily Active solifenacin (Vesicare) 5 MG tablet Take 1 (one) tablet by mouth once daily 30 tablet 2 2 Active Additional Information Patient not taking.Reported on 06/22/2023 plecanatide (Trulance) 3 MG tablet Take 1 (one) tablet by mouth once daily 3 Active sertraline (Zoloft) 50 MG tablet Take 0.5 (one-half) tablet by mouth once daily 3 Active oxybutynin CR 24hr (Ditropan-XL) 5 MG tablet Take 1 (one) tablet by mouth once daily 90 tablet 4 3 Active letrozole (Femara) 2.5 MG tablet Take 1 (one) tablet by mouth once daily 3 Active norethindrone (Aygestin) 5 MG tablet Take 1 (one) tablet by mouth once daily 3 Active sertraline (Zoloft) 100 MG tablet 3 Active EPINEPHrine (Epipen) 0.3 MG/0.3ML auto-injector pen Inject 0.3 mL into muscle once 4 Active Active Problems Problem Noted Date Diagnosed Date Rectal bleeding 07/31/2022 Overview (08/07/2022): Added automatically from request for surgery [id number] Thyroid nodule 03/28/2021 Overview (04/04/2022): Last Assessment & Plan: HPI: Condition is stable A&P: US 08/30/2020 noted a left thyroid nodule. A biopsy showed abnormal cells, but Afirma was low suspicion for malignancy. Repeat thyroid US done on 04/25/2021 showed stable left lobe nodule, possible right nodule. When repeated before FNA biopsy, radiologist did not see a nodule. Continue seeing Dr. Seb lundberg who is monitoring thyroid and repeating ultrasound. Small fiber neuropathy 03/22/2021 Overview (04/04/2022): Last Assessment & Plan: HPI: Condition is stable A&P: Discussed/ordered labs, encouraged healthy, low carbohydrate lifestyle and at least 150min/week of exercise, continue on gabapentin 300mg twice daily, continue seeing Dr. Marroquin neuro LALI (obstructive sleep apnea) 08/23/2020 Overview (04/04/2022): Last Assessment & Plan: Pt states using cpap for 6-8 hours/night most nights/wk Pt states less daytime somnolence, feels better when using it. Would recommend the continued use of cpap Continue f/u with Dr. 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 Numbness and tingling 04/06/2020 Overview (04/04/2022): Last Assessment & Plan: HPI: Condition is stable A&P: Discussed/ordered labs, encouraged healthy, low carbohydrate lifestyle and at least 150min/week of exercise, pt saw neurology and rheumatology. Neurology is going to take a biopsy. She is improving with the gabapentin 300mg twice daily. Overactive bladder 04/06/2020 Overview (04/04/2022): Last Assessment & Plan: HPI: Condition is stable A&P: Discussed/ordered labs, encouraged healthy, low carbohydrate lifestyle and at least 150min/week of exercise, continue seeing Dr. Nieto urology, continue doing Kegel exercises and low back exercises, oxybutynin 5mg daily, still having breakthrough. Pt is doing pelvic floor PT. Raynaud's disease without gangrene 04/06/2020 Overview (04/04/2022): Last Assessment & Plan: HPI: Condition is stable A&P: Discussed/ordered labs, encouraged healthy, low carbohydrate lifestyle and at least 150min/week of exercise, continue to wear gloves and warm socks in the winter, recommend using thermal lined cups to avoid rapid temperature changes to hands Arthralgia 04/28/2019 Overview (04/04/2022): Last Assessment & Plan: HPI: Condition is stable A&P: Discussed/ordered labs, encouraged healthy, low carbohydrate lifestyle and at least 150min/week of exercise, patient may trial on Vital Proteins Collagen Peptides two capfuls a day to help with joints Mixed hyperlipidemia 04/28/2019 Overview (04/04/2022): Last Assessment & Plan: HPI: Condition is stable A&P: Discussed/ordered labs, encouraged healthy, low carbohydrate lifestyle and at least 150min/week of exercise, continue on pravastatin 10mg daily, push water intake Vitamin D deficiency 03/25/2019 Overview (04/04/2022): Last Assessment & Plan: HPI: Condition is stable A&P: Discussed/ordered labs, encouraged healthy, low carbohydrate lifestyle and at least 150min/week of exercise, continue on vit d3 5000 units daily Endometriosis 02/24/2019 Irritable bowel syndrome 11/29/2018 Overview (04/04/2022): Last Assessment & Plan: HPI: Condition is stable starting to get better. Pt is getting ready to see a GI specialist that specializes with endometriosis also. A&P: Discussed/ordered labs, encouraged healthy, low carbohydrate lifestyle and at least 150min/week of exercise, continue on amitriptyline 50 mg nightly, continue seeing Dr. Ayon (GI). Please start taking probiotic 20-50billion CFU daily truck terminal manager. This will help maintain the good bacteria that is in your gut. Chronic generalized abdominal pain 11/16/2018 Overview (04/04/2022): Added automatically from request for surgery [id number] Last Assessment & Plan: HPI: Condition is stable A&P: Discussed/ordered labs, encouraged healthy, low carbohydrate lifestyle and at least 150min/week of exercise, continue on amitriptyline 25mg at bedtime, continue seeing Dr. Ayon GI Please start taking probiotic 20-50billion CFU daily truck terminal manager. This will help maintain the good bacteria that is in your gut. 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 Seb endo Continue on levothyroxine 100mcg daily Please take levothyroxine on an empty stomach. This means 1 hour before eating or 2 hours after eating. Food in the stomach will interfere with absorption of the levothyroxine. Calcium, antacids and iron supplements will also interfere with the absorption of levothyroxine. Please take these at a different time of the day. Diagnosis unknown 04/30/2017 Chronic pelvic pain in female 07/20/2014 Dysmenorrhea 07/20/2014 Dysuria 07/20/2014 Anxiety 11/26/2013 Overview (04/04/2022): Anxiety Last Assessment & Plan: Patient reiterated no suicidal thoughts at this [...] Recommend seeing counselor-pt not seeing counselor yet. Generalized anxiety disorder 11/26/2013 Overview (08/07/2022): Anxiety Last Assessment & Plan: Patient reiterated no suicidal thoughts at this [...] Week 4: start Zoloft 25 mg daily Rosacea 12/17/2011 Overview (04/04/2022): Last Assessment & Plan: HPI: Condition is stable A&P: Discussed/ordered labs, encouraged healthy, low carbohydrate lifestyle and at least 150min/week of exercise, continue wearing sunscreen, wear a hat if your are going to be out in the sun. She is also using cetaphil moisturizers Other idiopathic scoliosis, thoracic region 12/2011 Overview (08/07/2022): Last Assessment & Plan: HPI: Condition is stable A&P: Discussed/ordered labs, encouraged healthy, low carbohydrate lifestyle and at least 150min/week of exercise, continue tylenol as needed and Vital Proteins Collagen Peptides two capfuls a day to help with joints Family History Medical History Relation Name Comments Depression Brother Depression Father DVT - Deep Vein Thrombosis Mother Depression Mother Other Mother Mental health Pulmonary Embolism Mother Depression Sister Relation Name Status Comments Brother Father Alive Mother Alive Sister Social History Tobacco Use Types Packs/Day Years Used Date Smoking Tobacco: Former Cigarettes Q uit: 04/2009 Smokeless Tobacco: Never Tobacco Cessation:Counseling Given: Not Answered Alcohol Use Standard Drinks/Week Comments Yes 0 (1 standard drink = 0.6 oz pur e alcohol) occ Comments No Sex and Gender Information Value Date Recorded Sex Assigned at Not on file Legal Sex Female 1:16 PM CDT Gender Identity Not on file Sexual Orientation Not on file Last Filed Vital Signs Vital Sign Reading Time Taken Comments Blood Pressure 122/74 08/07/2022 8:25 AM CHARTING CLERK Pulse 58 02/25/2019 7:20 AM CDT Temperature 36.1 C (96.9 F) 08/07/2022 8:25 AM CHARTING CLERK Respiratory Rate 18 02/25/2019 7:20 AM CDT Oxygen Saturation 96% 02/25/2019 7:20 AM CDT Inhaled Oxygen Concentration - - Weight 110 kg (242 lb 6.4 oz) 08/07/2022 8:25 AM CHARTING CLERK Height 170.2 cm (5' 7) 08/07/2022 8:25 AM CHARTING CLERK Body Mass Index 37.97 08/07/2022 8:25 AM CHARTING CLERK Plan of Treatment Upcoming Encounters Date Type Department Care Team (Late st Contact Info) Description 06/26/2025 1:40 PM CHARTING CLERK Office Visit [facility] - General Dermatology [address] [place] [id number] Sarah Perla MD [address] [place] [address] Health Maintenance Due Date Last Done Comments HIV SCREENING 1996 HEPATITIS C SCREENING 10/23/1999 DTAP/TDAP/TD VACCINES (1 - Tdap) 2000 HEPATITIS B VACCINE (1 of 3 - 19+ 3-dose series) 2000 COVID-19 VACCINE ( - season) 2024 04/30/2022, 06/16/2021, 05/02/2021 DEPRESSION SCREENING 07/13/2024 INFLUENZA VACCINE (Season Ended) 2025 04/17/2022, 03/22/2021, 05/04/2020, Additional history exists MAMMOGRAM 10/12/2025 10/13/2023, 08/2023, 10/09/2022, Additional history exists ZOSTER VACCINE (1 of 2) 10/28/2031 HIB VACCINE Aged Out No longer eligi ble based on patient's age to complete this topic HPV VACCINE Aged Out No longer eligi ble based on patient's age to complete this topic MENINGOCOCCAL (Group B) VACCINE SHARED DECISION-MAKING Aged Out No longer eligible based on patient's age to complete this topic MENINGOCOCCAL GROUPS A/C/Y/W VACCINE Aged Out No longer eligible based on patient's age to complete this topic PNEUMOCOCCAL VACCINE Aged Out No long er eligible based on patient's age to complete this topic Insurance Care Teams Candle Wrapping Machine Operator Relationship Specialty Start Date End Date Stella Parks [address] [place] [address] PCP - General Neonatology 06/27/24
--- OUTSIDE RECORDS SUMMARY | 2024-12-14 13:40 | XMS_ITS | Clinical Summary ---
Author Organization [facility] Address [address] [place] [address] Phone Care Team Providers Care Teacher Learning Disabled Name Role Phone Nancy Wellington LANDSCAPE ARCHITECTURE PROFESSOR Primary Care Provi patrick Allergies Active Allergy Reactions Criticality Noted Date Comments Hydrocodone Rash Medium 05/05/2019 Sulfa Antibiotics Vomiting Medium 05/05/2019 Medications acetaminophen (TYLENOL) 500 MG Tablet Take 500 mg by mouth. Active dicyclomine (BENTYL) 20 MG Tablet Take 20 mg by mouth. 03/25/2019 Active estradiol (CLIMARA) 0.1 MG/24HR PATCH WEEKLY TIANA 1 PA EXT TO THE SKIN WEEKLY 12 02/25/2019 Active estradiol (VIVELLE-DOT) 0.1 MG/24HR PATCH BIWEEKLY 03/23/2019 Acti ve levothyroxine (SYNTHROID) 75 MCG Tablet 75 mcg. 12/15/2016 Active loratadine (CLARITIN) 10 MG Tablet Take 10 mg by mouth. Active pravastatin (PRAVACHOL) 10 MG Tablet TK 1 T PO D 5 05/05/2019 Active amitriptyline (ELAVIL) 25 MG Tablet TAKE 1 TABLET(25 MG) BY MOUTH EVERY NIGHT 01/30/2020 Active Cholecalciferol (D 5000) 125 mcg Capsule Take 5,000 Units by mouth. Active Multiple Vitamin (MULTI-VITAMIN PO) Take by mouth. Active oxybutynin (DITROPAN-XL) 5 MG TABLET SR 24 HRIndications:OA B (overactive bladder) Take 1 Tablet by mouth daily. 90 Tablet 3 09/13/2020 Active FLUoxetine HCl (PROZAC PO) Take by mouth. Active Active Problems Problem Noted Date Diagnosed Date Anxiety 04/03/2023 Immunizations Immunization Administration Dates Next Due Influenza Vaccine, Quadrivalent, PF 03/25/2019 Family History Medical History Relation Name Comments Elevated Lipids Father Colon Cancer Maternal Grandfather Depression Mother Relation Name Status Comments Father Maternal Grandfather Mother Social History Tobacco Use Types Packs/Day Years Used Date Smoking Tobacco: Former Smokeless Tobacco: Never Tobacco Cessation:Counseling Given: No Alcohol Use Standard Drinks/Week Comments Yes 0 (1 standard drink = 0.6 oz pur e alcohol) Sexually Active Control Partners Comments Yes Male Comments No Sex and Gender Information Value Date Recorded Sex Assigned at Not on file Legal Sex Female 11:11 PM CDT Gender Identity Not on file Sexual Orientation Not on file Last Filed Vital Signs Vital Sign Reading Time Taken Comments Blood Pressure 124/80 09/13/2020 8:44 AM EMPLOYEE BENEFITS MANAGER Pulse 80 09/13/2020 8:44 AM EMPLOYEE BENEFITS MANAGER Temperature 36.4 C (97.6 F) 09/13/2020 8:44 AM EMPLOYEE BENEFITS MANAGER Respiratory Rate 16 09/13/2020 8:44 AM EMPLOYEE BENEFITS MANAGER Oxygen Saturation 98% 09/13/2020 8:44 AM EMPLOYEE BENEFITS MANAGER Inhaled Oxygen Concentration - - Weight 94.4 kg (208 lb 3.2 oz) 09/13/2020 8:44 A M EMPLOYEE BENEFITS MANAGER Height 172.7 cm (5' 8) 09/13/2020 8:44 AM EMPLOYEE BENEFITS MANAGER Body Mass Index 31.66 09/13/2020 8:44 AM EMPLOYEE BENEFITS MANAGER Plan of Treatment Health Maintenance Due Date Last Done Comments Hepatitis C Virus (HCV) Screening 1981 Hepatitis B Immunization (1 of 3 - 19+ 3-dose series) 2000 Mammogram 10/10/2023 10/09/2022, 09/11, 09/20/2020, Additional history exists SARS-COV-2 Immunization ( season) 2024 04/30/2022, 06/16/2021, 05/02/2021 Influenza Immunization (Season Ended) 2025 03/14/2023, 04/17/2022, 03/22/2021, Additional history exists Respiratory Syncytial Virus (RSV) Immunization (Adult) (1 - 1-dose 75+ series) 2056 DTaP/Tdap/Td Immunization Discontinued 05/06/2018, 03/2016 TdaP Immunization Completed 05/06/2018, 09/19/2015 Discussion re Starting/Frequency of Mammograms Completed 10/09/2022, 10/03/2021, 10/05/2020, Additional history exists Human Papillomavirus (HPV) Immunization Aged Out No longer eligible based on patient's age to complete this topic Meningococcal Immunization (ACWY) Aged Out No longer eligible based on patient's age to complete this topic Pneumococcal Immunization Combined Aged Out No longer eligible based on patient's age to complete this topic Rotavirus Immunization Aged Out No lo nger eligible based on patient's age to complete this topic Goals Goal Patient Goal Type Associated Problems Recent Progress Patient-Stated? Author coping mechanisms, figure out why brain works the way it does, and to feel better Behavioral Health On track(09/02/19 2:47 PM EMPLOYEE BENEFITS MANAGER) Yes Monica Fermin, [facility] Insurance on file Care Teams Teacher Learning Disabled Relationship Specialty Start Date End Date Nancy Wellington NP [address] [place] [address] [place] [address] PCP - General Family Medicine 04/21/19
--- OUTSIDE RECORDS SUMMARY | 2024-12-14 13:40 | XMS_ITS | Encounter Summary ---
Author Organization [facility] Address [address] [place] [address] Care Team Providers Care Finished Stock Inspector Name Role Phone Keron Ayon MD Unavailable Masoud Resendiz MD Unavailable Renetta Parks NP Primary Care Provider Kae Vaughan MD Unavailable [phone] Adriana Vazquez MD Unavailable Encounter Details Date Type Department Care Team (Late st Contact Info) Description 11/04/2024 Results Follow-Up [facility] Medical Group Primary Care at [address] [place] [address] Renetta Parks NP [address] [place] [address] [address] [place] [address] Screening Mammogram Bilateral W Pol[place] Social History Tobacco Use Types Packs/Day Years [...] you have a drink containing alcohol? Never 08/31/2024 Q2: How many drinks containi ng alcohol do you have on a typical day when you are drinking? Patient does not drink Q3: How often do you have si x or more drinks on one occasion? Never 08/31/2024 PHQ-2 Answer Date Recorded PHQ-2 Total Score (If total score is 3 or more points, staff should administer the PHQ-9) 0 08/03/2024 Personal Safety Answer Date Recorded Getting School Help Needed Denies 06/29 Comments No Sex and Gender Information Value Date Recorded Sex Assigned at Not on file Legal Sex Female 6:51 PM WORD PROCESSOR OPERATOR Gender Identity Not on file Sexual Orientation Straight 11/16/2018 8: 18 AM CDT documented as of this encounter Miscellaneous Notes * Result Encounter Note - Lauren Salcedo - 11/04/2024 1:12 PM CDT Orders already placed. Pt should be contacted to schedule. * Telephone Encounter - Debbie Stack MA - 11/04/2024 12:51 PM CDT Pt is aware. documented in this encounter Plan of Treatment Not on file documented as of this encounter Visit Diagnoses Not on filedocumented in this encounter Care Teams Finished Stock Inspector Relationship Specialty Start Date End Date Renetta Parks NP [address] [place] [address] [address] R[address] [place] [address] PCP - General Family Medicine 07/17/22 Keron Ayon MD Consulting Physician Gastroenterology 04/06/20 Masoud Resendiz MD [address] [place] [address] Fellow Neurology 03/22/21 Kae Vaughan MD [address] [place] [address] [address] [place], [place] [address], [place] [address] Consulting Physician Obstetrics and Gynecology 01/27/24 Adriana Vazquez MD [address] [place] [address] [address] [place], [place] [address], [place] [address] Consulting Physician Sleep Medicine 01/27/24 documented as of this encounter
--- OUTSIDE RECORDS SUMMARY | 2024-12-14 13:40 | XMS_ITS | Clinical Summary ---
Author Organization [facility] Address [address] [place] [address] Care Team Providers Care Wharf Tender Head Name Role Phone Keron Ayon MD Unavailable Masoud Resendiz MD Unavailable [phone] Renetta Parks NP Primary Care Provider [phone] Kae Vaughan MD Unavailable [phone] Adriana Vazquez MD Unavailable Allergies Active Allergy Reactions Criticality Noted Date [...] 30 billion CFU by mouth daily Active ru-nra-gswic-calc ium carb-K1 400 mcg-500 mg calcium-20 mcg [...] Insulin Syringe 0.5 mL 30 gauge x 5/16 syringe 06/14/20 24 Active sertraline (ZOLOFT) 100 [...] 08/03/2024 Assessment & Plan (08/31/2024 11:45 AM AUTO WINDER): Schedule EGD with possible dilation Assessment & Plan (08/03/2024 9:59 AM AUTO WINDER): -New -Patient will likely need an EGD. [...] history of breast cancer in male 09/28/19 24 Overview (10/15/2023): Mgf- he had three siblings, [...] (07/31/2022): Added automatically from request for surgery [id number] Chronic bilateral low back pain without sciatica 07/17/2022 Assessment & Plan (07/17/2022 10:55 AM AUTO WINDER): -chronic, not at goal -ordered PT -recommend gentle stretching exercises Thyroid nodule 03/28/2021 Assessment & Plan (08/03/2024 7:54 AM AUTO WINDER): - chronic, stable -Discussed/ordered labs -continue on levothyroxine 100 mcg daily - repeat thyroid ultrasound as needed if noticing any new nodules Assessment & Plan (01/27/2024 7:56 AM CDT): - chronic, stable -continue on levothyroxine 100 mcg daily - repeat thyroid ultrasound as needed if noticing any new nodules Assessment & Plan (07/22/2023 1:13 PM AUTO WINDER): - chronic, Condition is stable -continue on [...] year Assessment & Plan (07/17/2022 7:17 AM AUTO WINDER): HPI: Condition is stable A&P: Discussed/ordered labs, [...] 03/22/2021 Assessment & Plan (08/03/2024 7:54 AM AUTO WINDER): - chronic, stable -Discussed/ordered labs -continue on gabapentin 300 mg twice daily -Continue seeing Dr. Marroquin Neurology Assessment & Plan (01/27/2024 7:56 AM CDT): - chronic, stable -Discussed/ordered labs -continue on gabapentin 300 mg twice daily -Continue seeing Dr. Marroquin Neurology Assessment & Plan (07/22/2023 1:13 PM AUTO WINDER): - chronic, Condition is stable -Discussed/ordered labs -continue on gabapentin 300 mg twice daily -Continue seeing Dr. Marroquin Neurology Assessment & Plan (07/17/2022 7:17 AM AUTO WINDER): HPI: Condition is stable A&P: Discussed/ordered labs, [...] on gabapentin 300mg once daily, seeing Dr. Lopez navarro LALI (obstructive sleep apnea) 08/23/2020 Assessment & Plan (08/03/2024 7:54 AM AUTO WINDER): -chronic, stable Pt states using cpap for [...] Medicine Assessment & Plan (07/22/2023 1:12 PM AUTO WINDER): -chronic, stable Pt states using cpap for [...] med Assessment & Plan (09/14/2020 1:32 PM AUTO WINDER): Just got fitted today for her cpap [...] also Assessment & Plan (09/14/2020 1:37 PM AUTO WINDER): HPI: Condition is stable A&P: Discussed/ordered labs, [...] 04/06/2020 Assessment & Plan (08/03/2024 7:55 AM AUTO WINDER): -chronic, stable -continue to wear gloves and warm socks and winter, use thermally cups to avoid rapid temperature changes to hands Assessment & Plan (07/22/2023 1:12 PM AUTO WINDER): -chronic, Condition is stable -continue to wear gloves and warm socks and winter, use thermally cups to avoid rapid temperature changes to hands Assessment & Plan (07/17/2022 7:18 AM AUTO WINDER): HPI: Condition is stable A&P: continue to [...] hands Assessment & Plan (09/14/2020 1:34 PM AUTO WINDER): HPI: Condition is stable , she has [...] 04/06/2020 Assessment & Plan (08/03/2024 7:55 AM AUTO WINDER): -chronic, not at/near goal goal BMI <30 Healthy, high-protein, lower carbohydrate, lower fat lifestyle and exercise for 150min/week recommended Recommend tracking everything you put in your mouth on an debo like Mobissimopal Hand Measurements: A fist or cupped hand [...] in your mouth on an debo like Wonderflow Hand Measurements: A fist or cupped hand [...] cup. Assessment & Plan (07/22/2023 1:10 PM AUTO WINDER): HPI: Condition is not at/near goal goal BMI <30 A&P: Healthy, high-protein, lower carbohydrate, lower fat lifestyle and exercise for 150min/week recommended Recommend tracking everything you put in your mouth on an debo like Wonderflow Hand Measurements: A fist or cupped hand [...] in your mouth on an debo like Wonderflow Hand Measurements: A fist or cupped hand [...] in your mouth on an debo like Wonderflow Hand Measurements: A fist or cupped hand [...] in your mouth on an debo like Wonderflow Hand Measurements: A fist or cupped hand [...] cup. Assessment & Plan (09/18/2022 7:07 AM AUTO WINDER): HPI: Condition is not at/near goal goal BMI <30 A&P: Healthy, high-protein, lower carbohydrate, lower fat lifestyle and exercise for 150min/week recommended Recommend tracking everything you put in your mouth on an debo like Wonderflow Hand Measurements: A fist or cupped hand [...] cup. Assessment & Plan (07/17/2022 7:20 AM AUTO WINDER): HPI: Condition is not at/near goal goal BMI <30 A&P: Healthy, high-protein, lower carbohydrate, lower fat lifestyle and exercise for 150min/week recommended Recommend tracking everything you put in your mouth on an debo like Mobissimopal Hand Measurements: A fist or cupped hand [...] in your mouth on an debo like Wonderflow Lower carb substitutions: [employer] carries a zero [...] in much longer they will become mushy [place] and/or coconut flour instead of regular flour [...] pork rinds For yogurt, try Two Good cayman islander yogurt Use Elizabeth for recipe ideas. Type in low carb... [...] in your mouth on an debo like Wonderflow or Letsmake [employer] carries a zero net carb bread [...] in much longer they will become mushy [place] and/or coconut flour instead of regular flour [...] pork rinds For yogurt, try Two Good [place] islander yogurt Use Pinterest for recipe ideas. Type [...] in your mouth on an debo like Wonderflow or Letsmake [employer] carries a zero net carb bread [...] in much longer they will become mushy [place] and/or coconut flour instead of regular flour [...] pork rinds For yogurt, try Two Good cay[place] islander yogurt Use Pinterest for recipe ideas. Type in low carb... Assessment & Plan (09/14/2020 12:58 PM AUTO WINDER): HPI: Condition is stable A&P: Healthy, low carbohydrate lifestyle and exercise for 150min/week recommended Substitutions: Recommend tracking everything you put in your mouth on an debo like Wonderflow [employer] carries a zero net carb bread [...] in much longer they will become mushy [place] and/or coconut flour instead of regular flour [...] pork rinds For yogurt, try Two Good cay[place] islander yogurt Use Pinterest for recipe ideas. Type in low carb... Assessment & Plan (04/06/2020 9:52 AM CDT): HPI: Condition is worsening A&P: Healthy, low carbohydrate lifestyle and exercise for 150min/week recommended Substitutions: Heath carries a zero net carb bread If [...] in much longer they will become mushy [place] and/or coconut flour instead of regular flour [...] 09/22/2019 Assessment & Plan (08/31/2024 11:45 AM AUTO WINDER): Continue Amitiza Assessment & Plan (08/03/2024 9:56 AM AUTO WINDER): -chronic, stable -Discussed/ordered labs -Keep scheduled appointment to establish care with GI on 08/31/24 Assessment & Plan (01/30/2024 11:27 AM CDT): -chronic, stable -Discussed/ordered labs -patient will need a referral to GI since Dr. Ayon is leaving [facility] soon. -referral placed to GI Assessment & Plan (04/16/2022 6:42 PM CDT): HPI: Condition is stable A&P: Discussed/ordered labs, encouraged healthy, low carbohydrate lifestyle and at least 150min/week of exercise, continue on amitriptyline 50mg nightly, continue to see Dr. Gabo WATERS Continue to take daily probiotics Assessment & Plan (10/16/2021 8:11 AM CDT): HPI: Condition is stable starting to get better. Pt is getting ready to see a GI specialist that specializes with endometriosis also. A&P: Discussed/ordered labs, encouraged healthy, low carbohydrate lifestyle and at least 150min/week of exercise, continue on amitriptyline 50 mg nightly, continue seeing Dr. Ayon (JT). 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 This will help maintain the good bacteria that is in your gut. Assessment & Plan (03/22/2021 1:29 PM CDT): HPI: Condition is stable A&P: Discussed/ordered labs, encouraged healthy, low carbohydrate lifestyle and at least 150min/week of exercise, continue on amitriptyline 25 mg at bedtime, no longer taking bentyl. Continue seeing Dr. Ayon (JT) Please start taking probiotic 20-50billion CFU daily halfway. This will help maintain the good bacteria [...] probiotic. Assessment & Plan (09/14/2020 1:40 PM AUTO WINDER): HPI: Condition is stable A&P: Discussed/ordered labs, encouraged healthy, low carbohydrate lifestyle and at least 150min/week of exercise, continue on Bentyl 20 mg 4 times daily in amitriptyline 25 mg at bedtime. Continue seeing Dr. 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 This will help maintain the good bacteria [...] 25 mg at bedtime Patient sees Dr. Ayon GI Mixed hyperlipidemia 04/28/2019 Assessment & Plan (08/03/2024 7:54 AM AUTO WINDER): -chronic, stable -Discussed/ordered labs -continue on pravastatin 10 mg nightly Assessment & Plan (01/27/2024 7:56 AM CDT): -chronic, stable -Discussed/ordered labs -continue on pravastatin 10 mg nightly Assessment & Plan (07/22/2023 1:11 PM AUTO WINDER): -chronic, unknown, no data to review at [...] intake Assessment & Plan (09/14/2020 1:41 PM AUTO WINDER): HPI: Condition is stable A&P: Discussed/ordered labs, [...] joints Assessment & Plan (09/14/2020 1:41 PM AUTO WINDER): HPI: Condition is stable A&P: Discussed/ordered labs, encouraged healthy, low carbohydrate lifestyle and at least 150min/week of exercise, endocrinology recommended patient see rheumatology and now she is scheduled to see Dr. Michaud (follow up rep) patient may trial on Vital Proteins Collagen Peptides one capful a day to help with joints Assessment & Plan (07/27/2020 4:13 PM AUTO WINDER): Patient with chronic symptoms and has seen Receptionist and did not get treatment Her symptoms [...] 03/25/2019 Assessment & Plan (08/03/2024 9:56 AM AUTO WINDER): -chronic, stable -Discussed/ordered labs -Patient is not currently taking a supplement for this Assessment & Plan (01/27/2024 7:56 AM CDT): -chronic, stable -Discussed/ordered labs -continue on vitamin D3 5000 units daily Assessment & Plan (07/22/2023 1:14 PM AUTO WINDER): -chronic, Condition is stable -Discussed/ordered labs -continue on vitamin D3 5000 units daily Assessment & Plan (07/17/2022 7:16 AM AUTO WINDER): HPI: Condition is stable A&P: Discussed/ordered labs, [...] daily Assessment & Plan (09/14/2020 1:02 PM AUTO WINDER): HPI: Condition is stable A&P: Discussed/ordered labs, [...] each month after that. This is a halfway medication unless you move closer to the [...] 11/16/2018 Assessment & Plan (08/31/2024 11:45 AM AUTO WINDER): Tender point near belly button, long-standing issue. 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 This will help maintain the good bacteria that is in your gut. Assessment & Plan (10/16/2021 7:05 AM CDT): HPI: Condition is stable A&P: Discussed/ordered labs, encouraged healthy, low carbohydrate lifestyle and at least 150min/week of exercise, continue on amitriptyline 25mg at bedtime, continue seeing Dr. Gabo WATERS Please start taking probiotic 20-50billion CFU daily halfway. This will help maintain the good bacteria that is in your gut. Assessment & Plan (03/22/2021 1:31 PM CDT): HPI: Condition is stable A&P: Discussed/ordered labs, encouraged healthy, low carbohydrate lifestyle and at least 150min/week of exercise, continue on amitriptyline 25 mg at bedtime, continue seeing Dr. Gabo WATERS Please start taking probiotic 20-50billion CFU daily halfway. This will help maintain the good bacteria [...] probiotic. Assessment & Plan (09/14/2020 1:44 PM AUTO WINDER): HPI: Condition is stable A&P: Discussed/ordered labs, encouraged healthy, low carbohydrate lifestyle and at least 150min/week of exercise, continue on Bentyl 20 mg 4 times daily in amitriptyline 25 mg at bedtime. Continue seeing Dr. 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 Assessment & Plan (09/14/2020 1:45 PM AUTO WINDER): HPI: Condition is stable A&P: Discussed/ordered labs, [...] results. Assessment & Plan (07/27/2020 4:11 PM AUTO WINDER): Diagnosed around 2014 Patient has been on [...] 10/16/2017 Assessment & Plan (08/31/2024 11:44 AM AUTO WINDER): Increased symptoms of regurgitation and back pain despite Prilosec use. Pain radiates to the back and is exacerbated by bending over. No recent weight gain or late meals. Alcohol consumption causes stomach pain. -Continue Omeprazole. -Schedule endoscopy to evaluate esophagus and stomach. Assessment & Plan (08/03/2024 9:58 AM AUTO WINDER): -chronic, not at/near goal Start on omeprazole [...] rhinitis Assessment & Plan (08/03/2024 7:55 AM AUTO WINDER): -chronic, stable -seeing allergy and immunology provider in [facility] -patient is getting allergy shots Discussed environmental [...] staying on the above treatment from the beginning of September to Come off of meds if possible during the summer Then restart on meds mid to late February until Come off of meds if possible during the winter Assessment & Plan (01/27/2024 12:05 PM CDT): -chronic, stable -seeing allergy and immunology provider in [place] -patient is getting allergy shots Discussed environmental [...] winter Assessment & Plan (09/14/2020 1:02 PM AUTO WINDER): HPI: Condition is stable A&P: Discussed environmental [...] Anxiety Assessment & Plan (08/03/2024 7:55 AM AUTO WINDER): -chronic, stable -continue on sertraline 100 mg [...] counselor Assessment & Plan (07/22/2023 12:53 PM AUTO WINDER): Patient reiterated no suicidal thoughts at this [...] month. Assessment & Plan (09/18/2022 10:57 AM AUTO WINDER): Patient reiterated no suicidal thoughts at this [...] request. Assessment & Plan (07/17/2022 10:54 AM AUTO WINDER): Patient reiterated no suicidal thoughts at this [...] counselor Assessment & Plan (09/14/2020 1:43 PM AUTO WINDER): Patient reiterated no suicidal thoughts at this [...] joints Assessment & Plan (09/14/2020 1:04 PM AUTO WINDER): HPI: Condition is stable A&P: Discussed/ordered labs, encouraged healthy, low carbohydrate lifestyle and at least 150min/week of exercise, endocrinology recommended patient see rheumatology patient may trial on Vital Proteins Collagen Peptides one capful a day to help with joints Rosacea 12/17/2011 Assessment & Plan (07/17/2022 7:17 AM AUTO WINDER): HPI: Condition is stable A&P: Discussed/ordered labs, [...] sun Assessment & Plan (09/14/2020 1:03 PM AUTO WINDER): HPI: Condition is stable A&P: Discussed/ordered labs, [...] daily. Assessment & Plan (09/14/2020 1:38 PM AUTO WINDER): HPI: Condition is stable A&P: Discussed/ordered labs, encouraged healthy, low carbohydrate lifestyle and at least 150min/week of exercise, she saw neurology and rheumatology and now she is scheduled to see Dr. Michaud (follow up rep) Assessment & Plan (04/06/2020 9:47 AM CDT): [...] day. Assessment & Plan (09/14/2020 1:36 PM AUTO WINDER): HPI: Condition is stable A&P: Discussed/ordered labs, [...] (11/17/2018): Added automatically from request for surgery [id number] Abnormal LFTs 11/16/2018 04/28/2019 Overview (11/16/2018): Added automatically from request for surgery [id number] IUGR (intrauterine growth re striction) affecting care of mother 05/06/2018 11/11/2018 Cervical cerclage suture present 03/10/2018 11/11/2018 Supervision of other high ri sk , antepartum 02/23/2018 11/11/2018 Cervical incompetence affect ing , antepartum 02/22/2018 11/11/2018 Antepartum multigravida of a dvanced maternal age 0512/02/2017 11/11/2018 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 Toñito Francis, now going to be seeing Dr. Vaca. Pt no longer using vivelle dot, continue on norethindrone 0.35mg daily Assessment & Plan (10/16/2021 8:07 AM CDT): HPI: Condition is stable A&P: Discussed/ordered labs, encouraged healthy, low carbohydrate lifestyle and at least 150min/week of exercise, continue on vivelle dot, pt had hysterectomy. Continue on collagen powder. F/u with [employer] Dr. Toñito Becker Assessment & Plan (03/22/2021 1:44 PM CDT): HPI: Condition is stable A&P: Discussed/ordered labs, encouraged healthy, low carbohydrate lifestyle and at least 150min/week of exercise, continue on vivelle dot, pt has hysterectomy. 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 She is wondering if her abd pain is from endo Assessment & Plan (09/14/2020 1:31 PM AUTO WINDER): HPI: Condition is stable A&P: Discussed/ordered labs, [...] at least 150min/week of exercise, continue see ob/gyn physician Had hysterectomy, uses vivelle dot for hormone Patient states she uses collagen peptides which has helped her abdominal pain due to her endometriosis NVD (normal vaginal delivery) 11/06/2011 04/06/2020 Encounters Date Type Department Care Team Description 11/30/19 Results Follow-Up [facility] Primary Care at [address] [address] Kia Gómez NP Surgical pathology 11/25/19 1:33 PM CDT Anesthesia Event [facility] [address] [place] [id number] Jacobo Barajas MD 11/25/19 1:00 PM CDT - 11/25/19 1:30 PM CDT Surgery [facility] [address] [place] [address] Gareth Whittaker MD ESOPHAGOGASTRODUODENOSCOPY BIOPSY 11/25/19 11:52 AM CDT - 11/25/19 4:01 PM CDT Hospital Encounter [facility] [address] [place] [id number] Gareth Whittaker MD Dysphagia, unspecified type Discharge Disposition: Discharge to home or self care 11/19/19 Orders Only [facility] Primary Care at [address] [place] [address] Renetta Parks NP Breast cancer screening by mammogram (Primary Dx) 11/17/19 Results Follow-Up [facility] Primary Care at [address] [place] [address] Renetta Parks NP Diagnostic Mammogram Right W Polo 11/16/19 9:37 AM CDT - 11/16/19 11:59 PM CDT Hospital Encounter [facility] Imaging and Radiology [id number] [place] [phone] Abnormal mammogram Discharge Disposition: Discharge to home or self care 11/15/19 10:30 AM CDT Office Visit [facility] Neuro Muscle [address] [facility] 6[address] [place] [address] [place] [phone] Margarita Fuentes NP Small fiber neuropathy (Primary Dx) 11/05/19 Results Follow-Up [facility] Primary Care at [address] [place] [phone] Renetta Parks NP Screening Mammogram Bilateral W Polo 11/03/19 9:02 AM CDT - 11/03/19 11:59 PM CDT Hospital Encounter [facility] Imaging and Radiology [address] [place] [phone] Screening mammogram, encount er for Discharge Disposition: Discharge to home or self care 10/04/19 Telephone [facility] Gastroenterology at [facility] [address] [place] [address] [address] [place] [address] Gareth Whittaker MD from Last 3 Months Immunizations Immunization Administration Dates Next Due Influenza, Quadrivalent, Rec ombinant, Egg Free, Preservative Free, Intramuscular 05/04/2020 Influenza, Quadrivalent, Spl it, Intramuscular 06/13/2016 Influenza, Quadrivalent, Spl it, Preservative Free, Intramuscular 03/14/2023,04/17/2022,03/22/2021,03/25,04/16/2018,06/10/2017 Influenza, Split 04/11/2013 Influenza, Trivalent, IM (MDV) 04/12/2013,2011,04/12/2011 Influenza, Trivalent, Preser vative Free, Intramuscular 06/21/2012 Influenza, Unspecified 05/29/2024,05/04/2020 MMR 12/18/2010 Tdap 05/06/2018,09/19/2015 Surgical History Surgery Date Site/Laterality Comments CHOLECYSTECTOMY 07/08/2016 EXPLORATORY LAPAROTOMY 07/13/2004 - 07/12/2005 removal of endometriosis HYSTERECTOMY 02/24/2019 with BSO LAPAROSCOPIC ENDOMETRIOSIS FULGURATION 04/23/2017 endometriosis: diagnostic laparoscopy COLONOSCOPY 11/29/2018 Mild melanosis coli UPPER ENDOSCOPIC ULTRASOUND W/ FNA 11/23/2018 H-Pylori; Chronic Active Gastritis. COLPOSCOPY LAPAROTOMY OVARIAN CYSTECTOMY 12/11/2010 - 01/09/2011 laproscopic w/fugluration of Endo & bilateral ovarian cystomy BIOPSY Thyroid APPENDECTOMY COLONOSCOPY 08/22/2022 abdominal pain, bleeding, constipation Medical History Medical History Date Comments History of multiple allergies Al lergiestrellita Thyroid disease Depression Endometriosis stage 4 Abnormal Pap smear of cervix Female infertility Hypothyroidism Scoliosis GERD (gastroesophageal reflux disease) History of blood clotting factor deficiency factor 2 PONV (postoperative nausea and vomiting) MVP (mitral valve prolapse) MVP Constipation Fatigue Anxiety Swelling abdomen Raynaud's disease Lucio's thyroiditis Smoking QUIT IN 2008 Sleep apnea Autoimmune disease 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 Family History Medical History Relation Name Comments Depression Brother Kike Mcneill Alcohol abuse Father Tad Mcneill Arthritis Father Tad Mcneill Depression Father Tad Mcneill Depression; Eczema Father Tad Mcneill Eczema; Rashes / Skin problems Father Tad Mcneill Breast cancer Maternal Grandfather i n his 70 Depression Mother Castillo Hollinsnkle Depression; Drug abuse Mother Castillo Hollinsnkle Scoliosis Mother Castillo Hollinsnkle Scoliosis; Vision loss Mother Castillo Hollinsnkle Mental illness Other Other Other Family history of Endometriosis; Endometriosis Sister 1 endometriosis; Scoliosis Sister 2 Scoliosis; Asthma Sister 3 Castillo Carter Drug abuse Sister 3 Castillo Carter Endometrial cancer Neg Hx Ovarian cancer Neg Hx cmt 09/28/23 Pancreatic cancer Neg Hx Prostate cancer Neg Hx Thyroid cancer Neg Hx Relation Name Status Comments Brother Kike Mcneill Father Tad Mcneill Alive Maternal Grandfather Mother Castillo Cuadra Alive Other Sister 1 Sister 2 Sister 3 Castillo Carter Social History Tobacco Use Types Packs/Day Years [...] on file Legal Sex Female 6:51 PM AUTO WINDER Gender Identity Not on file Sexual Orientation Straight 11/16/2018 8: 18 AM CDT Obstetrics History Para Term AB IAB SAB Ectopic Multiple Livin g Live Births 3 2 2 1 0 2 2 Date Outcome GA Total Labor Labor/2nd/3rd Weight Sex Type Anes PTL Antonia A1 A5 Name Clin 2 Term 38w 0d 3.402 kg (7 lb 8 oz) F Vag-S pont Epidur al N Livin g Pilar e 7 AB U SAB Demis e 2017 Term 38w 5d 1h 09m 1h 00m/0h 09m 2.92 kg (6 lb 7 oz) F Vag-S pont Epidur al N Livin g 9 9 ONEAL ,JOSEK SILVINO Arriaza, David Huerta MD Complications:None Delivery Location:This Facil ity ([facility]) Comments Cerclage placed 16 weeks, IV F , first trimester bleeding Last Filed Vital Signs Vital Sign Reading [...] 11/24/2024 12:58 PM CDT Plan of Treatment Health Maintenance Due Date Last Done Comments Regular Well Visit/Exam 18-64 01/26/2025 01/27/2024, 09/28/2023, 04/28/2019 Depression Screening 08/03/2025 08/03/2024, 01/27/2024, 09/28/2023, Additional history exists Breast Cancer Screening-Mammogram 11/02/2025 11/02/2024, 10/13/2023, 10/09/2022, Additional history exists DTaP/Tdap/Td Vaccine (3 - Td or Tdap) 05/06/2028 05/06/2018, 09/19/2015 Colon Cancer Screening-Colonoscopy 08/22/2032 08/22/2022, 11/29/2018 Hepatitis C Screening Completed 06/16/2019, 018 Covid-19 Vaccine Completed 04/28/2024, , 06/16/2021, Additional history exists Influenza Vaccine Completed 05/29/2024, , 04/17/2022, Additional history exists Hepatitis B Screening Completed 08/03/2024 HPV Vaccines Aged Out No longer eligi ble based on patient's age to complete this topic Pneumococcal vaccine <65 Aged Out No longer eligible based on patient's age to complete this topic Varicella Vaccines Discontinued Procedures Procedure Name Priority Date/Time Associated Diagnosis [...] mammogram, encounter for COLONOSCOPY 08/22/2022 11:33 AM AUTO WINDER HEPATITIS C ANTIBODY Routine 06/16/2019 10:39 AM AUTO WINDER Abnormal LFTs from Last 3 Months or Most Recently Relevant to Health Maintenance Results * EGD (11/24/2024 1:38 PM CDT) Anatomical Region Laterality Modality Other Narrative Procedure Note Gareth Whittaker MD - 11/24/2024 1:38 PM CDT [facility] Patient Name: Isi Platt Procedure [...] (if dysphagiapersists) Procedure Code(s): --- Professional --- 28806, Esophagogastroduodenoscopy, flexible, transoral; with biopsy, single or multiple 14822, Dilation of esophagus, by unguided sound or bougie, single or multiple passes Diagnosis Code(s): --- Professional --- K31.89, Other diseases of stomach and duodenum K22.89, Other specified disease of esophagus R13.10, Dysphagia, unspecified CPT copyright 2020 [employer]. All rights reserved. The codes documented in this report are preliminary and upon remote inpatient coder reviewmay be revised to meet current compliance [...] biopsy) 11/24/2024 1:50 PM CDT Narrative PATHOLOGY CH - 11/28/2024 11:03 AM CDT EPIC results best viewed via link to PDF [facility] Department of Pathology [address] [place] [address] [place] [address] Note to Patients: This report may contain [...] with Addendum Patient Name: ISI PLATT Address: [address] [place] [address]- Gender: F : 1980 (Age: 44) Service: Gastro Location: GI Lab Hospital #: [id number] Patient Type: [facility] Taken: 11/24/2024 Received: 11/25/2024 Accessioned: 11/25/2024 Reported: 11/28/2024 Physician(s):Gabrielle Marie, F.N.PJose Diagnosis: A. Gastric, antrum, biopsy: - Antral [...] for H. pylori is interpreted as negative Aurelia Michael M.D.Report Electronically Reviewed and Signed Out By Aurelia Michael M.D. 11/28/2024 15:03:50 Specimen(s) Received: A: Gastric antrum biopsy B: Esophagus biopsy r/o EOE Microscopic Description: Microscopic examination substantiates the above diagnosis. Clinical History: Dysphagia, unspecified type Gross Description: The specimen is submitted in two formalin containers labeled ISI Junior. The first container is labeled gastric antrum. It is 2 fragments of jj tissue between 1 and 2 mm. All in A. B. The second container is labeled esophagus. It is one jj 2 mm fragment. All in B. T.A. [place] Arriaga., P.Sandi./Aurelia Michael M.D. REPORT IMAGES AND SCANNED DOCUMENTS, IF INCLUDED, ONLY VIEWABLE IN PDF VERSION OF REPORT The performance characteristics of some immunohistochemical stains, fluorescence in-situ hybridization tests and immunophenotyping by flow cytometry cited in this report (if any) were determined by the Surgical Pathology Department at [facility] as part of an ongoing it quality analyst program and in compliance with federally mandated [...] characteristics determined by the Surgical Pathology Department [facility]. It has not been cleared or approved by the U. S. Food and Drug Administration. Note for decalcified specimens: This assay has not been validated on decalcified tissues. Results should be interpreted with caution given the possibility of false negativity on decalcified specimens Gareth Whittaker MD LAB PATHOLOGY [place] [address] [place] [address] * Diagnostic Mammogram Right W [place] (11/15/2024 [...] overlapping dense fibroglandular tissue. Renetta Parks NP [facility] [place] MAMMO PROCEDURES Final R esult * (ABNORMAL) [...] nal Result * COLONOSCOPY (08/22/2022 11:33 AM AUTO WINDER) Anatomical Region Laterality Modality Other Narrative Procedure Note Keron Ayon MD - 08/22/2022 11:33 AM CST [facility] Patient Name: Isi Platt Procedure Date: 08/22/2022 11:33 AM Date of : 1980 Admit Type: Outpatient Age: 41 Gender: Female Note Status: Finalized Attending MD: Keron Ayon M.D. Procedure Date: 08/22/2022 Procedure: Colonoscopy Indications: Rectal bleeding Providers: Keron Ayon M.D., Sofia Schumacher CRNA (Anesthesia Staff), Zina Joya RN, [facility], Technologist Referring MD: Renetta Parks Medicines: Monitored [...] bowel preparation was evaluated using the BBPS ([place] Bowel Preparation Scale) with scores of: Right [...] teaspoon POBID. Procedure Code(s): --- Professional --- 16448, Colonoscopy, flexible; diagnostic, including collection of specimen(s) by brushing or washing,when performed (separate procedure) Diagnosis Code(s): --- Professional --- K64.8, Other hemorrhoids K62.5, Hemorrhage of anus and rectum CPT copyright 2020 [employer]. All rights reserved. The codes documented in this report are preliminary and upon remote inpatient coder reviewmay be revised to meet current compliance requirements. Electronically signed by Keron Ayon MD Keron Ayon M.D. 08/22/2022 12:06:10 PM Number of Addenda: 0 Note Initiated On: 08/22/2022 11:33 AM Keron Ayon MD ENDOSCOPY PROCEDURES Final Resul t * Hepatitis C antibody (06/16/2019 10:39 AM AUTO WINDER) Hep C Ab Negative Negative DEBBIE MARIBEL Blood specimen (specimen) 06/16/2019 10:39 AM AUTO WINDER 06/16/2019 4:11 PM AUTO WINDER Keron Ayon MD LAB MICROBIOLOGY - GENERAL ORDER DOMENICO Final Result DEBBIE [address] [address] Department [place] [address] from Last 3 Months or Most Recently Relevant to Health Maintenance Insurance CHOICE PLUS Advance Directives For more information, please contact: [phone] * Full Code (Latest Code Status on [...] 3:08 PM 02/23/2018 8:04 PM 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
[2024-12-14 13:45] VITALS: BP 138/77; PULSE 76; RESP 16; TEMP 36.4; O2SAT 98
--- NOTE | 2024-12-14 13:50 | ED_ITS ---
HPI - Skin/Abscess/Foreign Bdy General Chief complaint: Skin/Abscess/Foreign Body Stated complaint: cyst on breast Source: patient Mode of arrival: ambulatory Limitations: no limitations History of Present Illness HPI narrative: Patient is a 44 year old female who presents to the clinic for complaints of a cyst with redness and pain to her left breast x 2 days. She states that she has been taking Tylenol for pain. Denies any fevers, body aches, chills, or drainage from cyst. Related Data Home Medications ?Medication ?Instructions ?Recorded ?Confirmed ?Last Taken ?Type amitriptyline 25 mg tablet 25 mg PO .QHS 10/25/19 02/24/20 Unknown History ascorbic acid (vitamin C) 1,000 mg 1 gm PO DAILY 10/25/19 02/24/20 Unknown History tablet cholecalciferol (vitamin D3) 125 125 mcg PO DAILY 10/25/19 02/24/20 Unknown History mcg (5,000 unit) capsule dicyclomine 20 mg tablet 20 mg PO ONCE PRN 10/25/19 02/24/20 Unknown History estradiol 0.1 mg/24 hr semiweekly 1 patch transdermal 2XW 10/25/19 02/24/20 Unknown History transdermal patch (Vivelle-Dot) linaclotide 145 mcg capsule 145 mcg PO .QOD 10/25/19 02/24/20 Unknown History (Linzess) lysine 1,000 mg tablet 1,000 mg PO DAILY 10/25/19 02/24/20 Unknown History kokzabir-ola-gmwf 18 mg-FA 400 tablet PO DAILY 10/25/19 02/24/20 Unknown History mcg-calcium 500 mg-vit K 50 mcg tablet (Women's Multivitamin) pravastatin 10 mg tablet 10 mg PO DAILY 10/25/19 02/24/20 Unknown History psyllium husk (with sugar) 3.4 2 tsp PO DAILY 10/25/19 02/24/20 Unknown History gram/7 gram oral powder (Fiber (psyllium husk-sugar)) levothyroxine 100 mcg capsule 100 mcg PO DAILY 12/07/19 02/24/20 Unknown History oxybutynin chloride 10 mg 10 mg PO DAILY 02/24/20 02/24/20 Unknown History tablet,extended release 24 hr gabapentin 300 mg capsule mg 12/14/24 Unknown History lubiprostone 8 mcg capsule mcg PO 12/14/24 Unknown History Allergies Allergy/AdvReac Type Severity Reaction Status Date / Time adhesive tape Allergy Mild Rash Verified 02/24/20 11:29 hydrocodone Allergy Mild Itching Verified 02/24/20 11:29 oxycodone Allergy Mild Itching Verified 02/24/20 11:29 Sulfa (Sulfonamide Allergy Mild Itching Verified 02/24/20 11:29 Antibiotics) Review of Systems Review of Systems: CONSTITUTIONAL: Denies body aches, fever, chills, or sweats. EYES: Denies visual changes, redness, or discharge. ENT: Denies rhinorrhea, congestion CARDIOVASCULAR: Denies chest pain, palpitations, or edema. RESPIRATORY: Denies cough or dyspnea. GASTROINTESTINAL: Denies abdominal pain, nausea, vomiting, or diarrhea. SKIN: ?Reports a cyst to her left breast. MUSCULOSKELETAL: Denies back pain, joint pain, or myalgia. NEUROLOGIC: Denies headache, numbness, tingling, or weakness. All systems reviewed & are unremarkable except as noted in HPI and below PMFSH Past Medical History Medical History Raynaud phenomenon Factor II deficiency Neuropathy Falls frequently Thoracic scoliosis Counseling on health promotion and disease prevention Inflammatory arthritis Thyroid disorder Lumbar back pain Scoliosis Ganglion cyst of dorsum of right wrist Anxiety Endometriosis of cervix IBS (irritable bowel syndrome) Surgical History Surgical History Vitamin D deficiency (~05/2019) Hx of cholecystectomy H/O ovarian cystectomy H/O colonoscopy H/O endoscopy H/O: hysterectomy Family History Family History Mother Scoliosis DVT (deep venous thrombosis) Depression Migraine Father Eczema Social History Social History Smoking status: Never smoker Alcohol intake: current Drinks per week: 2 Alcohol use details: wine or beer Substance use: never Living arrangements: with family Occupation/Education: unemployed 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 Please see nursing chart for further information. There is no relevant family history pertinent to the presenting complaint. Exam Narrative: GENERAL: Well-appearing HEAD: Normocephalic, atraumatic. EYES: ?conjunctivae clear, and EOMI. ENT: Mucous membranes moist. Oropharynx without edema, erythema or lesions. NECK: Supple. No lymphadenopathy CHEST: Clear to auscultation. HEART: Regular rate and rhythm. SKIN: Warm, dry. ?4cm x 4cm abscess noted to left breast. NEURO: ?Alert and oriented x3.? Course Course Level of Care: Express Care Visit Vital Signs Vital signs: Vital Signs Temperature 97.6 F 12/14/24 13:45 Pulse Rate 76 12/14/24 13:45 Respiratory Rate 16 12/14/24 13:45 Blood Pressure 138/77 12/14/24 13:45 Pulse Oximetry 98 12/14/24 13:45 Oxygen Delivery Room Air 12/14/24 13:45 Temperature 97.6 F 12/14/24 13:45 Pulse Rate 76 12/14/24 13:45 Respiratory Rate 16 12/14/24 13:45 Blood Pressure 138/77 12/14/24 13:45 Pulse Oximetry 98 12/14/24 13:45 Oxygen Delivery Room Air 12/14/24 13:45 Reviewed. Procedures Abscess I/D left breast: Date of Incision: 12/14/24 Side (if applicable): left Local Anesthetic: lidocaine 1% Amount of anesthesia used (mL): 2 Technique: needle aspiration and incised with #11 blade Irrigation: Yes Packing used?: none I&D Results: Pus Abcess I&D Additional Comments: The procedure and its alternatives were reviewed with patient. Risks were reviewed with patient including infection and damage to nearby structures. Patient provided verbal informed consent. The patient was positioned appropriately. After warm water soak, Single straight Incision made to center of most fluctuant area of abscess; moderate amount of thick purulent discharge expelled with manual pressure. Pt tolerated the procedure well, no complications. Dressing applied STACIE and bandaid. MDM - Skin/Abscess/Foreign Bdy MDM Narrative Medical decision making narrative: Discussed physical exam findings. Antibiotics for infection to abscess. Advised supportive measures and signs/symptoms to go to the ER. Pt is appropriate for outpatient treatment and follow up. Differential Diagnosis Differential diagnosis: Likely abscess of skin or subcutaneous tissue and cellulitis Critical Care Time Critical Care Time Critical Care Time: No Discharge Plan Discharge Clinical Impression: Breast abscess Patient Disposition: Home Condition: Stable Instructions: Abscess (ED) Additional Instructions: Take antibiotic as prescribed. You had an abscess drained today. You may shower, Cleanse with warm soapy water Keep your wound covered while draining Warm compresses at least 4 times a day to the site to help expel any additional drainage. Take antibiotic as directed Tylenol and ibuprofen every 8 hours for pain as needed Follow up with your primary care physician in 2-3 days for a wound check. Go to the Emergency Department immediately if you develop any of the following symptoms: Fevers, Increased redness, pain, or swelling around where your abscess was, generalized weakness or vomiting or any other concerns. Patient Language: Cameroonian Prescriptions: New doxycycline hyclate 100 mg tablet 100 mg PO BID 10 Days Qty: 20 0RF No Action gabapentin 300 mg capsule lubiprostone 8 mcg capsule PO levothyroxine 100 mcg capsule 100 mcg PO DAILY oxybutynin chloride 10 mg tablet extended release 24hr 10 mg PO DAILY amlodipine 2.5 mg tablet 2.5 mg PO BID Qty: 60 4RF Linzess 145 mcg capsule 145 mcg PO .QOD amitriptyline 25 mg tablet 25 mg PO .QHS pravastatin 10 mg tablet 10 mg PO DAILY cholecalciferol (vitamin D3) 125 mcg (5,000 unit) capsule 125 mcg PO DAILY ascorbic acid (vitamin C) 1,000 mg tablet 1 gm PO DAILY lysine 1,000 mg tablet 1,000 mg PO DAILY Women's Multivitamin 18 mg-400 mcg- 500 mg-50 mcg tablet PO DAILY estradiol [Vivelle-Dot] 0.1 mg/24 hr patch semiweekly 1 patch TRANSDERM 2XW Rx Instructions: apply 1 patch for 3 days alternating with 1 patch for 4 days each week for 3 wks per 4-wk cycle dicyclomine 20 mg tablet 20 mg PO ONCE PRN Fiber (psyllium husk-sugar) 3.4 gram/7 gram powder 2 tsp PO DAILY Follow-up/Referrals: Charly,Renetta Olvera [Other] Stand Alone Forms: Work/School Release IP Time of Disposition: 14:22
== END 2024-12-14 14:29 | disposition home or self-care (01) ==
DX: N61.1 Abscess of the breast and nipple (principal); I73.00 Raynaud's syndrome without gangrene; M19.90 Unspecified osteoarthritis, unspecified site; N80.9 Endometriosis, unspecified; D68.2 Hereditary deficiency of other clotting factors; G62.9 Polyneuropathy, unspecified; M41.9 Scoliosis, unspecified; E55.9 Vitamin D deficiency, unspecified
CPT/HCPCS: 10060; 87070; 87075; 87077; 87186; 87205; 99213; G0463